=== PATIENT | female | born 1965 | race Caucasian/White ===

== ENCOUNTER 2016-11-28 16:19 | Inpatient (IN) | payer SELFPAY ==
[2016-11-28] MEDS ORDERED: Albuterol/Ipratropium 3.0-0.5 MG/3 ML Neb Soln NEB ONE (18:01)
--- NOTE | 2016-11-28 18:15 | EDM.PDOC ---
ED HPI GENERAL MEDICAL PROBLEM - General Chief Complaint: Respiratory Problem Stated Complaint: SOB Time Seen by Provider: 11/28/16 17:45 Source of Information: Reports: Patient History Limitations: Reports: No Limitations - History of Present Illness INITIAL COMMENTS - FREE TEXT/NARRATIVE: Patient presents today with complaints of worsening cough, yellow mucus production and SOB. Ramona states she has had a worsening cough for about 7 days. She now has pain when she coughs to her ribs, yellow mucus production and increase SOB. She denies fever, chill, nausea, vomiting or headaches. 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 ) - Related Data Allergies Allergy/AdvReac Type Severity Reaction Status Date / Time No Known Allergies Allergy Verified 02/19/13 20:28 Home Meds: Home Meds Albuterol [Ventolin HFA] 1 puff .XX 11/28/16 [History] Past Medical History Respiratory History: Reports: Asthma IMMIGRATION COORDINATOR History: Reports: Immunologic History: Reports: Other (See Below) (Splenectomy) - Past Surgical History HEENT Surgical History: Reports: Tonsillectomy GI Surgical History: Reports: Other (See Below) Other GI Surgeries/Procedures: spleen removed Social & Family History - Tobacco Use Smoking Status *Q: Current Some Day Smoker (Patient reports when she is feeling well she uses 2 to 2.5 ppd cigarettes.) Years of Tobacco use: 30 Packs/Tins Daily: 1 Used Tobacco, but Quit: No Second Hand Smoke Exposure: Yes - Caffeine Use Caffeine Use: Reports: Coffee - Alcohol Use Days Per Week of Alcohol Use: 2 Number of Drinks Per Day: 2 Total Drinks Per Week: 4 - Recreational Drug Use Recreational Drug Use: No ED ROS GENERAL - Review of Systems Review Of Systems: See Below Constitutional: Reports: Malaise, Weakness, Fatigue. Denies: Fever, Chills, Night Sweats, Diaphoresis, Weight Loss HEENT: Denies: Ear Pain, Sinus Problem, Throat Pain, Throat Swelling, Vision Change Cardiovascular: Reports: Dyspnea on Exertion, Other (She complains of pain to ribs and upper back with cough. ). Denies: Palpitations, PND, Syncope Endocrine: Reports: Fatigue GI/Abdominal: Denies: Abdominal Pain, Constipation, Diarrhea, Nausea, Vomiting : Denies: Dysuria, Frequency, Pain, Urgency Musculoskeletal: Reports: Other (Rib and upper back pain with cough. ) Skin: Denies: Cyanosis, Mottled, Pallor, Diaphoresis, Dryness, Bruising, Erythema Neurological: Denies: Confusion, Dizziness, Headache, Numbness, Tingling, Change in Speech, Gait Disturbance Psychiatric: Reports: No Symptoms Hematologic/Lymphatic: Reports: No Symptoms Immunologic: Reports: No Symptoms Free Text/Narrative/Comment: Ramona does not have an established provider, states she has not for several years. She does state that she has a nebulizer, albuterol nebs and albuterol inhaler at home. She also states she has not been up to date on her most recent immunizations ( spleenectomy). ED EXAM, GENERAL - Physical Exam Exam: See Below Exam Limited By: No Limitations General Appearance: Alert, WD/WN, No Apparent Distress Eye Exam: Bilateral Eye: Normal Inspection, PERRL Ears: Normal External Exam, Normal Canal, Normal TMs Ear Exam: Bilateral Ear: Auricle Normal, Canal Normal, TM normal Nose: Normal Inspection, Normal Mucosa, No Blood Throat/Mouth: Normal Inspection, Normal Lips, Normal Teeth, Normal Gums, Normal Voice, No Airway Compromise, Other (No pursed lip breathing, tri-podding. Mucus membranes dry. ) Head: Atraumatic, Normocephalic Neck: Normal Inspection, Supple, Non-Tender, Full Range of Motion. No: Lymphadenopathy (R), Lymphadenopathy (L) Respiratory/Chest: No Respiratory Distress, Chest Non-Tender, Decreased Breath Sounds, Rales, Rhonchi, Wheezing, Accessory Muscle Use, Prolonged Expiration. No: Stridor, Pleural Rub, Splinting Cardiovascular: Normal Peripheral Pulses, Regular Rate, Rhythm, No Edema, No Gallop, No Murmur, No Rub, Other (Distant heart sounds) Peripheral Pulses: 2+: Radial (L), Radial (R), Dorsalis Pedis (L), Dorsalis Pedis (R) GI/Abdominal: Normal Bowel Sounds, Soft, Non-Tender, No Distention, No Mass Back Exam: Normal Inspection, Full Range of Motion. No: CVA Tenderness (R), CVA Tenderness (L) Extremities: Normal Inspection, Normal Range of Motion, Non-Tender, No Pedal Edema, Normal Capillary Refill. No: Pedal Edema, Slow Capillary Refill, Mottled , Pallor Neurological: Alert, Oriented, CN II-XII Intact, Normal Cognition, Normal Gait, No Motor/Sensory Deficits Psychiatric: Normal Affect, Normal Mood Skin Exam: Warm, Dry, Intact, Normal Color, No Rash Lymphatic: No Adenopathy Course - Vital Signs Last Recorded V/S: Last Vital Signs Temp 36.9 C 11/28/16 19:05 Pulse 104 H 11/28/16 19:05 Resp 18 11/28/16 19:05 BP 122/79 11/28/16 19:05 Pulse Ox 89 L 11/28/16 19:05 - Orders/Labs/Meds Orders: Active Orders 24 hr Category Date Time Status RT Aerosol Therapy [RC] ASDIRECTED Care 11/28/16 18:01 Active Chest 2V [CR] Stat Exams 11/28/16 18:01 Taken ABG [BLOOD GAS ARTERIAL] [BG] Stat Lab 11/28/16 19:07 Ordered Sodium Chloride 0.9% [Saline Flush] Med 11/28/16 19:08 Ordered 10 ml FLUSH ASDIRECTED PRN Saline Lock Insert [OM.PC] Routine Oth 11/28/16 19:08 Ordered Medication Orders Sodium Chloride (Saline Flush) 10 ml FLUSH ASDIRECTED PRN PRN Reason: Keep Vein Open Labs: Laboratory Tests 11/28/16 11/28/16 11/28/16 Range/Units 18:17 18:17 18:17 WBC 9.5 (4.5-11.0) K/uL RBC 4.72 (3.30-5.50) M/uL Hgb 15.8 H D (12.0-15.0) g/dL Hct 45.2 (36.0-48.0) % MCV 96 (80-98) fL MCH 34 H (27-31) pg MCHC 35 (32-36) % Plt Count 310 (150-400) K/uL Neut % (Auto) 39 (36-66) % Lymph % (Auto) 35 (24-44) % Starr % (Auto) 10 H (2-6) % Eos % (Auto) 14 H (2-4) % Baso % (Auto) 2 H (0-1) % Sodium 138 L (140-148) mmol/L Potassium 4.5 (3.6-5.2) mmol/L Chloride 101 (100-108) mmol/L Carbon Dioxide 31 (21-32) mmol/L Anion Gap 10.5 (5.0-14.0) mmol/L BUN 9 (7-18) mg/dL Creatinine 0.7 (0.6-1.0) mg/dL Est Cr Clr Drug Dosing 71.21 mL/min Estimated GFR (MDRD) > 60 (>60) Glucose 96 (74-106) mg/dL Calcium 9.3 (8.5-10.1) mg/dL Total Bilirubin 0.5 D (0.2-1.0) mg/dL AST 22 (15-37) U/L ALT 23 (12-78) U/L Alkaline Phosphatase 51 (46-116) U/L C-Reactive Protein 0.02 (0.0-0.3) mg/dL Total Protein 7.4 (6.4-8.2) g/dL Albumin 4.3 (3.4-5.0) g/dL Globulin 3.1 (2.3-3.5) g/dL Albumin/Globulin Ratio 1.4 (1.2-2.2) Meds: Medications Generic Name Dose Route Start Last Admin Trade Name Freq PRN Reason Stop Dose Admin Sodium Chloride 10 ml 11/28/16 19:08 Saline Flush FLUSH ASDIRECTED PRN Keep Vein Open Discontinued Medications Generic Name Dose Route Start Last Admin Trade Name Freq PRN Reason Stop Dose Admin Albuterol/Ipratropium 3 ml 11/28/16 18:01 11/28/16 18:14 Duoneb 3.0-0.5 Mg/3 Ml NEB 11/28/16 18:02 3 ml ONETIME ONE Administration Methylprednisolone Sodium Succinate 125 mg 11/28/16 19:08 Solu-Medrol IVPUSH 11/28/16 19:09 ONETIME ONE - Radiology Interpretation Free Text/Narrative:: Chest x-ray reviewed with Dr. Mccarthy, possible consolidation left lower lobe. - Re-Assessments/Exams Free Text/Narrative Re-Assessment/Exam: 11/28/16 18:51 Patient reports her breathing has improved after use of nebulizer. Patient lab work and x-ray findings reviewed with her and her , all questions answered. 11/28/16 19:12 PatientO2 Saturation drops to 81-82 % on room air with talking. O2 saturation increases to 88% with deep breathing on room air. Patient agrees to be admitted for acute COPD exacerbation. Myrna Orellana AIRPLANE CAPTAIN to ER to admit patient. Departure - Departure Time of Disposition: 19:20 Disposition: [facility] Condition: Poor Clinical Impression: COPD exacerbation, Tobacco dependence, Hypoxia - Discharge Information Referrals: PCP,None [Primary Care Provider] - Forms: ED Department Discharge - My Orders Last 24 Hours: My Active Orders 11/28/16 18:01 RT Aerosol Therapy [RC] ASDIRECTED Chest 2V [CR] Stat 11/28/16 19:07 ABG [BLOOD GAS ARTERIAL] [BG] Stat 11/28/16 19:08 Sodium Chloride 0.9% [Saline Flush] 10 ml FLUSH ASDIRECTED PRN Saline Lock Insert [OM.PC] Routine - Assessment/Plan Last 24 Hours: My Active Orders 11/28/16 18:01 RT Aerosol Therapy [RC] ASDIRECTED Chest 2V [CR] Stat 11/28/16 19:07 ABG [BLOOD GAS ARTERIAL] [BG] Stat 11/28/16 19:08 Sodium Chloride 0.9% [Saline Flush] 10 ml FLUSH ASDIRECTED PRN Saline Lock Insert [OM.PC] Routine Assessment:: COPD exacerbation Hypoxia Tobacco dependence continuous. Plan: Patient has agreed to be admitted for COPD exacerbation. She was provided education on importance of tobacco cessation, following up with a primary care provider for care, importance of immunizations as well as impact on her body due to history of splenectomy.
[2016-11-28] MEDS ORDERED: methylPREDNISolone Sodium Succinate 125 MG/2 ML SDV IVPUSH ONE (19:08)
[2016-11-28] MEDS: Sodium Chloride 0.9% 10 ML Syringe FLUSH PRN (19:28)
[2016-11-28] MEDS ORDERED: Acetaminophen 325 MG Tab PO PRN (20:38)
[2016-11-28] MEDS ORDERED: LORazepam 2 MG/ML MDV IV PRN (20:38)
[2016-11-28] MEDS ORDERED: Ondansetron 4 MG/2 ML SDV IV PRN (20:38)
[2016-11-28] MEDS ORDERED: Ondansetron 4 MG Tab.DIS PO PRN (20:38)
[2016-11-28] MEDS ORDERED: Albuterol 0.083% 2.5 MG/3 ML Neb Soln NEB PRN (20:38)
[2016-11-28] MEDS ORDERED: Docusate Sodium 100 MG Cap PO PRN (20:38)
[2016-11-28] MEDS ORDERED: oxyCODONE 5 MG Tab PO PRN (20:38)
[2016-11-28] MEDS ORDERED: Ibuprofen 600 MG Tab PO PRN (20:38)
[2016-11-28] MEDS ORDERED: Morphine 2 MG/ML Syringe IVPUSH PRN (20:38)
[2016-11-28] MEDS ORDERED: Azithromycin 500 MG in Sodium Chloride 0.9% 250 ML IV SCH (21:00)
[2016-11-28] MEDS: Sodium Chloride 0.9% 1,000 ML IV SCH (22:08)
[2016-11-28] MEDS: cefTRIAXone 1 GM in Sodium Chloride 0.9% 50 ML IV SCH (22:12)
[2016-11-28] MEDS: Zolpidem 5 MG Tab PO SCH (22:16)
[2016-11-28] MEDS: Nicotine 21 MG/24 Hr Patch TRDERM SCH (22:17)
[2016-11-28] MEDS: Albuterol/Ipratropium 3.0-0.5 MG/3 ML Neb Soln NEB SCH (22:34)
[2016-11-28] MEDS: Enoxaparin 40 MG/0.4 ML Syringe SUBCUT SCH (22:41)
[2016-11-29] MEDS: methylPREDNISolone Sodium Succinate 125 MG/2 ML SDV IV SCH ×2 (01:21→06:55)
--- NOTE | 2016-11-29 02:30 | PCM.HP ---
H&P History of Present Illness - General Date of Service: 11/28/16 Admit Problem/Dx: Admission Diagnosis/Problem Admission Diagnosis/Problem COPD, Moderate chronic obstructive pulmonary disease Source of Information: Patient, Family () History Limitations: Reports: Respiratory Distress - History of Present Illness Initial Comments - Free Text/Narative: respiratory illness for 7 days. Onset of Symptoms: Reports: Gradual Duration of Symptoms: Reports: Day(s): (seven), Getting Worse Location: Reports: Chest Quality: Reports: Other (painful cough) Severity: Severe Improves with: Reports: None Worsens with: Reports: Breathing, Movement Context: Reports: Other (respiratory illness for the past 7 days. heavy smoker 2.5 packs per day for years. 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: Other OB/BYN History: x 3 Hematologic History: Reports: None, Anesthesia Reaction, Anemia, Anticoagulation Therapy, Autoimmune Thrombocytopenic Purpura, B12 Deficiency, Bleeding Disorder, Blood Transfusion(s), Folic Acid, Hemochromatosis, Heparin Induced Thrombocytopenia, Idiopathic Thrombocytopenia, Iron Deficiency, Polycythemia, Sickle Cell Anemia, Transfusion Reaction, Other (See Below) Other Hematologic History: hx of spleenectomy Immunologic History: Reports: Other (See Below) Other Immunologic History: hx of spleenectomy Oncologic (Cancer) History: Reports: Cervix - Infectious Disease History Infectious Disease History: Reports: Chicken Pox - Past Surgical History HEENT Surgical History: Reports: Tonsillectomy GI Surgical History: Reports: Other (See Below) Other GI Surgeries/Procedures: spleen removed Social & Family History - Tobacco Use Smoking Status *Q: Current Every Day Smoker Tobacco Use Within Last Twelve Months: Cigarettes (smoking 2 and half packs for years. 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 has 7 children, 1 as due to liver defect) H&P Review of Systems - Review of Systems: Review Of Systems: See Below General: Reports: Fever, Chills, Malaise, Weakness, Decreased Appetite HEENT: Reports: Sore Throat (from cough) Pulmonary: Reports: Shortness of Breath, Wheezing, Pleuritic Chest Pain, Cough, Sputum Cardiovascular: Reports: Dyspnea on Exertion, Orthopnea Gastrointestinal: Reports: No Symptoms Genitourinary: Reports: No Symptoms Musculoskeletal: Reports: No Symptoms Skin: Reports: No Symptoms Psychiatric: Reports: No Symptoms Neurological: Reports: No Symptoms Hematologic/Lymphatic: Reports: No Symptoms Immunologic: Reports: No Symptoms Exam - Exam Exam: See Below - Vital Signs Vital Signs: Last Vital Signs Temp 36.4 C 11/28/16 21:12 Pulse 78 11/28/16 21:12 Resp 18 11/28/16 21:12 BP 127/78 11/28/16 21:12 Pulse Ox 92 L 11/28/16 23:42 Weight: 46 kg - Exam Quality Assessment: Supplemental Oxygen General: Alert, Oriented, Cooperative, Mild Distress HEENT: PERRLA, Hearing Intact, Mucosa Moist & [employer], Nares Patent, Normal Nasal Septum, Posterior Pharynx Clear, Conjunctiva Clear, EOMI, EACs Clear, TMs Clear Neck: Supple, Trachea Midline, 2 Lungs: Decreased Breath Sounds Cardiovascular: Regular Rate, Regular Rhythm Abdomen: Normal Bowel Sounds, Soft Back Exam: Normal Inspection, Full Range of Motion Extremities: Normal Inspection Skin: Warm, Dry, Intact Neurological: Cranial Nerves Intact, Reflexes Equal Bilateral Neuro Extensive - Mental Status: Alert, Oriented x3, Normal Mood/Affect, Normal Cognition Neuro Extensive - Motor, Sensory, Reflexes: CN II-XII Intact, Normal Gait, Normal Reflexes Psychiatric: Alert, Normal Affect, Normal Mood - Patient Data Lab Results Last 24 hrs: Laboratory Results - last 24 hr 11/29/16 Range/Units 01:37 Urine Color Yellow Urine Appearance Clear Urine pH 5.0 (4.5-8.0) Ur Specific Wiggins 1.015 (1.008-1.030) Urine Protein Negative (NEGATIVE) mg/dL Urine Glucose (UA) Normal (NEGATIVE) mg/dL Urine Ketones Negative (NEGATIVE) mg/dL Urine Occult Blood Negative (NEGATIVE) Urine Nitrite Negative (NEGATIVE) Urine Bilirubin Negative (NEGATIVE) Urine Urobilinogen Normal (NORMAL) mg/dL Ur Leukocyte Esterase Negative (NEGATIVE) Urine RBC 0-5 (0-5) Urine WBC 0-5 (0-5) Ur Epithelial Cells Rare Amorphous Sediment Not seen Urine Bacteria Few Urine Mucus Not seen Result Diagrams: 11/28/16 18:17 11/28/16 18:17 Robbie Results Last 24 hrs: Microbiology 11/29/16 00:05 Gram Stain - Final Sputum - Expectorated *Q Meaningful Use (ADM) - VTE *Q VTE Criteria *Q: - Stroke *Q Stroke Criteria *Q: - AMI *Q AMI Criteria *Q: - Problem List (1) COPD exacerbation SNOMED Code(s): 416967622, 674423678 ICD Code: J44.1 - CHRONIC OBSTRUCTIVE PULMONARY DISEASE W (ACUTE) EXACERBATION Status: Acute Priority: High Current Visit: Yes (2) Hypoxia SNOMED Code(s): 098535668, 630678437 ICD Code: R09.02 - HYPOXEMIA Status: Acute Priority: High Current Visit : Yes (3) Tobacco dependence SNOMED Code(s): 63263733 ICD Code: F17.200 - NICOTINE DEPENDENCE, UNSPECIFIED, UNCOMPLICATED Status : Acute Priority: High Current Visit: Yes Problem List Initiated/Reviewed/Updated: Yes Orders Last 24hrs: Active Orders 24 hr Category Date Time Status Patient Status [ADT] Routine ADT 11/28/16 20:38 Active Communication Order [RC] ASDIRECTED Care 11/28/16 20:38 Active Intake and Output [RC] QSHIFT Care 11/28/16 20:38 Active May Shower [RC] ASDIRECTED Care 11/28/16 20:38 Active Notify Provider [RC] PRN Care 11/28/16 20:38 Active Oxygen Therapy [RC] ASDIRECTED Care 11/28/16 20:38 Active Pulse Oximetry [RC] CONTINUOUS Care 11/28/16 20:38 Active Up ad Liset [RC] ASDIRECTED Care 11/28/16 20:38 Active VTE/DVT Education [RC] Per Unit Routine Care 11/28/16 20:38 Active Vital Signs [RC] Q4H Care 11/28/16 20:38 Active Consult to Pulmonary Rehabilitation [CONS] Routine Cons 11/28/16 20:38 Active OT Evaluation and Treatment [CONS] Routine Cons 11/28/16 20:38 Active Respiratory Care Assess and Treatment [CONS] Routine Cons 11/28/16 20:38 Active Regular Diet [DIET] Diet 11/28/16 Dinner Active Chest 2V [CR] AM Exams 11/29/16 05:11 Ordered BASIC METABOLIC PANEL,BMP [CHEM] AM Lab 11/29/16 05:11 Ordered CBC WITH AUTO DIFF [HEME] AM Lab 11/29/16 05:11 Ordered CULTURE RESPIRATORY + SMEAR [RM] Stat Lab 11/29/16 00:05 Results Acetaminophen [Tylenol] Med 11/28/16 20:38 Active 650 mg PO Q4H PRN Albuterol [Proventil Neb Soln] Med 11/28/16 20:38 Active 2.5 mg NEB Q4H PRN Albuterol/Ipratropium [DuoNeb 3.0-0.5 MG/3 ML] Med 11/28/16 21:00 Active 3 ml NEB QIDRT Azithromycin [Zithromax] 500 mg Med 11/28/16 21:00 Active Sodium Chloride 0.9% [Normal Saline] 250 ml IV Q24H Codeine/guaiFENesin [Robitussin AC] Med 11/28/16 20:38 Active 10 ml PO Q4H PRN Docusate Sodium [Colace] Med 11/28/16 20:38 Active 100 mg PO BID PRN Enoxaparin [Lovenox] Med 11/28/16 20:38 Active 40 mg SUBCUT DAILY Ibuprofen [Motrin] Med 11/28/16 20:38 Active 600 mg PO Q6H PRN LORazepam [Ativan] Med 11/28/16 20:38 Active 1 mg IV Q6H PRN Morphine Med 11/28/16 20:38 Active 2 mg IVPUSH Q2H PRN Nicotine [Habitrol] Med 11/28/16 20:38 Active 21 mg TRDERM DAILY Ondansetron [Zofran ODT] Med 11/28/16 20:38 Active 4 mg PO Q6H PRN Ondansetron [Zofran] Med 11/28/16 20:38 Active 4 mg IV Q4H PRN Sodium Chloride 0.9% [Normal Saline] 1,000 ml Med 11/28/16 20:38 Active IV ASDIRECTED Zolpidem [Ambien] Med 11/28/16 21:00 Active 5 mg PO BEDTIME cefTRIAXone [Rocephin] 1 gm Med 11/28/16 20:30 Active Sodium Chloride 0.9% [Normal Saline] 50 ml IV Q24H methylPREDNISolone Sod Succ [Solu-MEDROL] Med 11/29/16 01:00 Active 62.5 mg IV Q6H oxyCODONE Med 11/28/16 20:38 Active 5 mg PO Q4H PRN Resuscitation Status Routine Resus Stat 11/28/16 19:44 Ordered Medication Orders Acetaminophen (Tylenol) 650 mg PO Q4H PRN PRN Reason: Pain (Mild 1-3)/fever Albuterol (Proventil Neb Soln) 2.5 mg NEB Q4H PRN PRN Reason: Shortness Of Breath/wheezing Albuterol/Ipratropium (Duoneb 3.0-0.5 Mg/3 Ml) 3 ml NEB QIDRT [facility] Last Admin: 11/28/16 22:34 Dose: 3 ml Docusate Sodium (Colace) 100 mg PO BID PRN PRN Reason: Constipation Enoxaparin Sodium (Lovenox) 40 mg SUBCUT DAILY [facility] Last Admin: 11/28/16 22:41 Dose: 40 mg Guaifenesin/Codeine Phosphate (Robitussin Ac) 10 ml PO Q4H PRN PRN Reason: Cough Azithromycin 500 mg/ Sodium (Chloride) 250 mls @ 250 mls/hr IV Q24H [facility] Stop: 12/01/16 21:01 Last Admin: 11/28/16 22:45 Dose: 250 mls/hr Sodium Chloride (Normal Saline) 1,000 mls @ 125 mls/hr IV ASDIRECTED [facility] Last Admin: 11/28/16 22:08 Dose: 125 mls/hr Ceftriaxone Sodium 1 gm/ (Sodium Chloride) 50 mls @ 200 mls/hr IV Q24H [facility] Stop: 12/05/16 20:31 Last Admin: 11/28/16 22:12 Dose: 200 mls/hr Ibuprofen (Motrin) 600 mg PO Q6H PRN PRN Reason: Pain/Fever Lorazepam (Ativan) 1 mg IV Q6H PRN PRN Reason: Nausea/Vomiting Methylprednisolone Sodium Succinate (Solu-Medrol) 62.5 mg IV Q6H [facility] Last Admin: 11/29/16 01:21 Dose: 62.5 mg Morphine Sulfate (Morphine) 2 mg IVPUSH Q2H PRN PRN Reason: Pain (severe 7-10) Nicotine (Habitrol) 21 mg TRDERM DAILY [facility] Last Admin: 11/28/16 22:17 Dose: 21 mg Ondansetron HCl (Zofran Odt) 4 mg PO Q6H PRN PRN Reason: Nausea able to take PO Ondansetron HCl (Zofran) 4 mg IV Q4H PRN PRN Reason: Nausea/Vomiting Oxycodone HCl (Oxycodone) 5 mg PO Q4H PRN PRN Reason: Pain (moderate 4-6) Sodium Chloride (Saline Flush) 10 ml FLUSH ASDIRECTED PRN PRN Reason: Keep Vein Open Last Admin: 11/28/16 19:28 Dose: 10 ml Zolpidem Tartrate (Ambien) 5 mg PO BEDTIME [facility] Last Admin: 11/28/16 22:16 Dose: Not Given Assessment/Plan Comment:: Assessment/Plan Comment:: ASSESSMENT AND PLAN -This is a 51 year old female presented to ER with , concerns of respiratory illness for the past 7 days. report shortness of breath, having to sleep upright, any time lays flat or down, has increased shortness of breath and coughing. In noted to be hypoxia with oxygen sats low 80's. labs, blood cultures pending, chest xray. will admit to hospital due to hypoxia. COPD-excerbation -duoneb and albuterol nebs as scheduled -IV solumedrol 62.5 mg every 6 hours -IV rocephin 1 gram every 24 hours -IV zithromax 500mg every 24 hours -robitussin AC 10ml every 4 hours prn cough -Continue outpatient medical regimen Tobacco dependence -Nicotine patch daily MAINTENANCE ISSUES -DVT prophylaxis; Lovenox 30 mg subcutaneous daily -GI prophylaxis; PPI therapy -Morley catheter; not indicated -Nutrition; regular diet -Nicotine dependence; patch order -consult OT discharge plannig CODE STATUS-FULL CODE ADMISSION patient will be admitted to inpatient status, expect at least a 2 night hospital stay for evaluation and management of problems as outlined above. At the time of this admission I do not reasonably expected evaluation and management of this problem will require more than a 96 hour hospital stay. DISPOSITION-anticipate discharge to home after the hospital stay. PRIMARY CARE PROVIDER- none listed
[2016-11-29] MEDS: Sodium Chloride 0.9% 1,000 ML IV SCH (06:55)
[2016-11-29] MEDS: Albuterol/Ipratropium 3.0-0.5 MG/3 ML Neb Soln NEB SCH ×4 (07:23→21:35)
[2016-11-29] MEDS ORDERED: Pantoprazole 40 MG Vial IVPUSH SCH (09:00)
[2016-11-29] MEDS: Enoxaparin 40 MG/0.4 ML Syringe SUBCUT SCH (09:59)
[2016-11-29] MEDS: Nicotine 21 MG/24 Hr Patch TRDERM SCH (09:59)
[2016-11-29] MEDS ORDERED: LORazepam 2 MG/ML MDV IV PRN (10:29)
[2016-11-29] MEDS: Codeine/guaiFENesin 100mg-10 MG/5 ML Syrup 10 ML Cup PO PRN (10:35)
--- NOTE | 2016-11-29 10:36 | PCM.PN ---
- General Info Date of Service: 11/29/16 Functional Status: Reports: tolerating diet, urinating - Review of Systems General: Denies: Fever, Weakness, Chills Pulmonary: Reports: shortness of breath, cough, sputum, wheezing. Denies: pleuritic chest pain, hemoptysis Cardiovascular: Reports: Dyspnea on Exertion. Denies: Chest Pain, Palpitations , Orthopnea, PND, Edema, Lightheadedness Gastrointestinal: Reports: No symptoms Systems Review Comment:: This patient is a 51-year-old woman who was admitted during the night with hypoxia, shortness of breath, and cough. She has a diagnosis of asthma, chest x- ray shows evidence of obvious COPD with significant hyperinflation. She does have a long-standing smoking history. Since admission she has been treated with antibiotics as well as IV Solu-Medrol and nebulizer therapy and does feel at least modestly improved. Vital signs have been stable and she has remained afebrile. - Patient Data Vitals - most recent: Last Vital Signs Temp 95.5 F 11/29/16 07:11 Pulse 82 11/29/16 07:24 Resp 16 11/29/16 07:11 BP 110/77 11/29/16 07:11 Pulse Ox 94 L 11/29/16 07:24 Weight - most recent: 101 lb 6.602 oz I&O - last 24 hours: Intake & Output 11/28/16 11/29/16 11/29/16 22:59 06:59 14:59 Intake Total 200 1745 Output Total 550 825 Balance -350 920 Lab Results last 24 hrs: Laboratory Results - last 24 hr 11/29/16 11/29/16 11/29/16 Range/Units 01:37 05:30 05:30 WBC 8.8 (4.5-11.0) K/uL RBC 4.63 (3.30-5.50) M/uL Hgb 15.3 H (12.0-15.0) g/dL Hct 44.7 (36.0-48.0) % MCV 97 (80-98) fL MCH 33 H (27-31) pg MCHC 34 (32-36) % Plt Count 285 (150-400) K/uL Neut % (Auto) 83 H (36-66) % Lymph % (Auto) 16 L (24-44) % [place] % (Auto) 1 L (2-6) % Eos % (Auto) 0 L (2-4) % Baso % (Auto) 1 (0-1) % Sodium 139 L (140-148) mmol/L Potassium 4.5 (3.6-5.2) mmol/L Chloride 104 (100-108) mmol/L Carbon Dioxide 31 (21-32) mmol/L Anion Gap 8.5 (5.0-14.0) mmol/L BUN 9 (7-18) mg/dL Creatinine 0.7 (0.6-1.0) mg/dL Est Cr Clr Drug Dosing 70.60 mL/min Estimated GFR (MDRD) > 60 (>60) Glucose 147 H (74-106) mg/dL Calcium 8.8 (8.5-10.1) mg/dL Urine Color Yellow Urine Appearance Clear Urine pH 5.0 (4.5-8.0) Ur Specific [place] 1.015 (1.008-1.030) Urine Protein Negative (NEGATIVE) mg/dL Urine Glucose (UA) Normal (NEGATIVE) mg/dL Urine Ketones Negative (NEGATIVE) mg/dL Urine Occult Blood Negative (NEGATIVE) Urine Nitrite Negative (NEGATIVE) Urine Bilirubin Negative (NEGATIVE) Urine Urobilinogen Normal (NORMAL) mg/dL Ur Leukocyte Esterase Negative (NEGATIVE) Urine RBC 0-5 (0-5) Urine WBC 0-5 (0-5) Ur Epithelial Cells Rare Amorphous Sediment Not seen Urine Bacteria Few Urine Mucus Not seen Robbie Results last 24 hrs: Microbiology 11/29/16 00:05 Gram Stain - Final Sputum - Expectorated Med Orders - Current: Current Medications Acetaminophen (Tylenol) 650 mg PO Q4H PRN PRN Reason: Pain (Mild 1-3)/fever Albuterol (Proventil Neb Soln) 2.5 mg NEB Q4H PRN PRN Reason: Shortness Of Breath/wheezing Albuterol/Ipratropium (Duoneb 3.0-0.5 Mg/3 Ml) 3 ml NEB QIDRT [facility] Last Admin: 11/29/16 07:23 Dose: 3 ml Docusate Sodium (Colace) 100 mg PO BID PRN PRN Reason: Constipation Enoxaparin Sodium (Lovenox) 40 mg SUBCUT DAILY [facility] Last Admin: 11/29/16 09:59 Dose: 40 mg Guaifenesin/Codeine Phosphate (Robitussin Ac) 10 ml PO Q4H PRN PRN Reason: Cough Azithromycin 500 mg/ Sodium (Chloride) 250 mls @ 250 mls/hr IV Q24H [facility] Stop: 12/01/16 21:01 Last Admin: 11/28/16 22:45 Dose: 250 mls/hr Ceftriaxone Sodium 1 gm/ (Sodium Chloride) 50 mls @ 200 mls/hr IV Q24H [facility] Stop: 12/05/16 20:31 Last Admin: 11/28/16 22:12 Dose: 200 mls/hr Ibuprofen (Motrin) 600 mg PO Q6H PRN PRN Reason: Pain/Fever Lorazepam (Ativan) 0.5 mg IV Q2H PRN PRN Reason: Nausea/Vomiting Methylprednisolone Sodium Succinate (Solu-Medrol) 40 mg IV Q6H [facility] Morphine Sulfate (Morphine) 2 mg IVPUSH Q2H PRN PRN Reason: Pain (severe 7-10) Nicotine (Habitrol) 21 mg TRDERM DAILY [facility] Last Admin: 11/29/16 09:59 Dose: 21 mg Ondansetron HCl (Zofran Odt) 4 mg PO Q6H PRN PRN Reason: Nausea able to take PO Ondansetron HCl (Zofran) 4 mg IV Q4H PRN PRN Reason: Nausea/Vomiting Oxycodone HCl (Oxycodone) 5 mg PO Q4H PRN PRN Reason: Pain (moderate 4-6) Pantoprazole Sodium (Protonix) 40 mg PO ACBREAKFAST [facility] Sodium Chloride (Saline Flush) 10 ml FLUSH ASDIRECTED PRN PRN Reason: Keep Vein Open Last Admin: 11/28/16 19:28 Dose: 10 ml Zolpidem Tartrate (Ambien) 5 mg PO BEDTIME [facility] Last Admin: 11/28/16 22:16 Dose: Not Given Discontinued Medications Albuterol/Ipratropium (Duoneb 3.0-0.5 Mg/3 Ml) 3 ml NEB ONETIME ONE Stop: 11/28/16 18:02 Last Admin: 11/28/16 18:14 Dose: 3 ml Sodium Chloride (Normal Saline) 1,000 mls @ 125 mls/hr IV ASDIRECTED [facility] Last Admin: 11/29/16 06:55 Dose: 125 mls/hr Lorazepam (Ativan) 1 mg IV Q6H PRN PRN Reason: Nausea/Vomiting Methylprednisolone Sodium Succinate (Solu-Medrol) 125 mg IVPUSH ONETIME ONE Stop: 11/28/16 19:09 Last Admin: 11/28/16 19:29 Dose: 125 mg Methylprednisolone Sodium Succinate (Solu-Medrol) 62.5 mg IV Q6H [facility] Last Admin: 11/29/16 06:55 Dose: 62.5 mg Pantoprazole Sodium (Protonix Iv) 40 mg IVPUSH DAILY [facility] Last Admin: 11/29/16 09:59 Dose: 40 mg - Exam Quality Assessment: DVT prophylaxis General: alert, oriented, cooperative, mild distress Lungs: Decreased breath sounds, Wheezing. No: Crackles, Rales, Rhonchi, Rub Cardiovascular: Regular Rate, Regular Rhythm, No Murmurs Abdomen: bowel sounds present, soft, no tenderness, no distension Extremities: no edema Skin: warm, dry, intact - Problem List Review Problem List Initiated/Reviewed/Updated: Yes - My Orders Last 24 Hours: My Active Orders 11/29/16 10:29 LORazepam [Ativan] 0.5 mg IV Q2H PRN Convert IV to Saline Lock [OM.PC] Routine 11/29/16 10:30 methylPREDNISolone Sod Succ [Solu-MEDROL] 40 mg IV Q6H - Plan Plan:: ASSESSMENT AND PLAN COPD-excerbation -duoneb and albuterol nebs as scheduled -IV solumedrol 40 mg every 6 hours -IV rocephin 1 gram every 24 hours -IV zithromax 500mg every 24 hours -robitussin AC 10ml every 4 hours prn cough -Continue outpatient medical regimen -Saline lock IV -Supplemental oxygen as needed Tobacco dependence-I counseled her this morning concerning the importance of nicotene cessation -Nicotine patch daily MAINTENANCE ISSUES -DVT prophylaxis; Lovenox 30 mg subcutaneous daily -GI prophylaxis; PPI therapy -Morley catheter; not indicated -Nutrition; regular diet -Nicotine dependence; patch order -consult OT discharge plannig CODE STATUS-FULL CODE ADMISSION patient will be admitted to inpatient status, expect at least a 2 night hospital stay for evaluation and management of problems as outlined above. At the time of this admission I do not reasonably expected evaluation and management of this problem will require more than a 96 hour hospital stay. DISPOSITION-anticipate discharge to home after the hospital stay. PRIMARY CARE PROVIDER- none listed
[2016-11-29] MEDS: methylPREDNISolone Sodium Succinate 40 MG/1 ML SDV IVPUSH SCH ×2 (13:05→17:54)
[2016-11-29] MEDS: Zolpidem 5 MG Tab PO SCH (21:28)
[2016-11-29] MEDS: cefTRIAXone 1 GM in Sodium Chloride 0.9% 50 ML IV SCH (21:29)
[2016-11-29] MEDS: Azithromycin 500 MG in Sodium Chloride 0.9% 250 ML IV SCH (22:22)
[2016-11-30] MEDS: methylPREDNISolone Sodium Succinate 40 MG/1 ML SDV IVPUSH SCH ×3 (01:24→16:54)
[2016-11-30] MEDS: Codeine/guaiFENesin 100mg-10 MG/5 ML Syrup 10 ML Cup PO PRN ×2 (02:50→09:01)
[2016-11-30] MEDS: Pantoprazole 40 MG Tab.CR PO SCH (08:15)
[2016-11-30] MEDS: Albuterol/Ipratropium 3.0-0.5 MG/3 ML Neb Soln NEB SCH ×4 (08:34→21:16)
[2016-11-30] MEDS: Enoxaparin 40 MG/0.4 ML Syringe SUBCUT SCH (08:57)
[2016-11-30] MEDS: Nicotine 21 MG/24 Hr Patch TRDERM SCH (08:58)
--- NOTE | 2016-11-30 10:52 | PCM.PN ---
- General Info Date of Service: 11/30/16 Functional Status: Reports: tolerating diet, urinating - Review of Systems General: Reports: Weakness. Denies: Fever, Chills Pulmonary: Reports: shortness of breath, cough. Denies: sputum, hemoptysis, wheezing Cardiovascular: Reports: Dyspnea on Exertion. Denies: Chest Pain, Palpitations , Orthopnea, PND, Edema Gastrointestinal: Reports: No symptoms Systems Review Comment:: This patient has improved over the past 24 hours with less shortness of breath and cough. Remains hypoxic and continues to require supplemental oxygen. Vital signs have been stable and she has remained afebrile. - Patient Data Vitals - most recent: Last Vital Signs Temp 97.1 F 11/30/16 10:48 Pulse 101 H 11/30/16 10:48 Resp 18 11/30/16 10:48 BP 90/57 L 11/30/16 10:48 Pulse Ox 93 L 11/30/16 10:48 Weight - most recent: 101 lb 6.602 oz I&O - last 24 hours: Intake & Output 11/29/16 11/30/16 11/30/16 22:59 06:59 14:59 Intake Total 0289 113 6882 Output Total 1300 1000 1000 Balance 380 -520 540 Robbie Results last 24 hrs: Microbiology 11/29/16 00:05 Gram Stain - Final Sputum - Expectorated Respiratory Culture - Preliminary Med Orders - Current: Current Medications Acetaminophen (Tylenol) 650 mg PO Q4H PRN PRN Reason: Pain (Mild 1-3)/fever Albuterol (Proventil Neb Soln) 2.5 mg NEB Q4H PRN PRN Reason: Shortness Of Breath/wheezing Albuterol/Ipratropium (Duoneb 3.0-0.5 Mg/3 Ml) 3 ml NEB QIDRT [facility] Last Admin: 11/30/16 08:34 Dose: 3 ml Docusate Sodium (Colace) 100 mg PO BID PRN PRN Reason: Constipation Enoxaparin Sodium (Lovenox) 40 mg SUBCUT DAILY [facility] Last Admin: 11/30/16 08:57 Dose: 40 mg Guaifenesin/Codeine Phosphate (Robitussin Ac) 10 ml PO Q4H PRN PRN Reason: Cough Last Admin: 11/30/16 09:01 Dose: 10 ml Ceftriaxone Sodium 1 gm/ (Sodium Chloride) 50 mls @ 200 mls/hr IV Q24H [facility] Stop: 12/05/16 20:31 Last Admin: 11/29/16 21:29 Dose: 200 mls/hr Azithromycin 500 mg/ Sodium (Chloride) 250 mls @ 250 mls/hr IV Q24H [facility] Stop: 11/30/16 21:59 Last Admin: 11/29/16 22:22 Dose: 250 mls/hr Ibuprofen (Motrin) 600 mg PO Q6H PRN PRN Reason: Pain/Fever Lorazepam (Ativan) 0.5 mg IV Q2H PRN PRN Reason: Nausea/Vomiting Methylprednisolone Sodium Succinate (Solu-Medrol) 40 mg IVPUSH Q12H [facility] Morphine Sulfate (Morphine) 2 mg IVPUSH Q2H PRN PRN Reason: Pain (severe 7-10) Nicotine (Habitrol) 21 mg TRDERM DAILY [facility] Last Admin: 11/30/16 08:58 Dose: 21 mg Ondansetron HCl (Zofran Odt) 4 mg PO Q6H PRN PRN Reason: Nausea able to take PO Ondansetron HCl (Zofran) 4 mg IV Q4H PRN PRN Reason: Nausea/Vomiting Oxycodone HCl (Oxycodone) 5 mg PO Q4H PRN PRN Reason: Pain (moderate 4-6) Pantoprazole Sodium (Protonix) 40 mg PO ACBREAKFAST [facility] Last Admin: 11/30/16 08:15 Dose: 40 mg Sodium Chloride (Saline Flush) 10 ml FLUSH ASDIRECTED PRN PRN Reason: Keep Vein Open Last Admin: 11/28/16 19:28 Dose: 10 ml Zolpidem Tartrate (Ambien) 5 mg PO BEDTIME [facility] Last Admin: 11/29/16 21:28 Dose: Not Given Discontinued Medications Albuterol/Ipratropium (Duoneb 3.0-0.5 Mg/3 Ml) 3 ml NEB ONETIME ONE Stop: 11/28/16 18:02 Last Admin: 11/28/16 18:14 Dose: 3 ml Azithromycin 500 mg/ Sodium (Chloride) 250 mls @ 250 mls/hr IV Q24H [facility] Stop: 12/01/16 21:01 Last Admin: 11/28/16 22:45 Dose: 250 mls/hr Sodium Chloride (Normal Saline) 1,000 mls @ 125 mls/hr IV ASDIRECTED [facility] Last Admin: 11/29/16 06:55 Dose: 125 mls/hr Lorazepam (Ativan) 1 mg IV Q6H PRN PRN Reason: Nausea/Vomiting Methylprednisolone Sodium Succinate (Solu-Medrol) 125 mg IVPUSH ONETIME ONE Stop: 11/28/16 19:09 Last Admin: 11/28/16 19:29 Dose: 125 mg Methylprednisolone Sodium Succinate (Solu-Medrol) 62.5 mg IV Q6H [facility] Last Admin: 11/29/16 06:55 Dose: 62.5 mg Methylprednisolone Sodium Succinate (Solu-Medrol) 40 mg IVPUSH Q6H [facility] Last Admin: 11/30/16 05:35 Dose: 40 mg Pantoprazole Sodium (Protonix Iv) 40 mg IVPUSH DAILY [facility] Last Admin: 11/29/16 09:59 Dose: 40 mg - Exam General: alert, oriented, cooperative, mild distress Lungs: Decreased breath sounds, Wheezing. No: Crackles, Rales, Rhonchi, Rub, Stridor Cardiovascular: Regular Rate, Regular Rhythm, No Murmurs Abdomen: bowel sounds present, soft, no tenderness, no distension Extremities: no edema Skin: warm, dry, intact - Problem List Review Problem List Initiated/Reviewed/Updated: Yes - My Orders Last 24 Hours: My Active Orders 11/29/16 10:29 LORazepam [Ativan] 0.5 mg IV Q2H PRN Convert IV to Saline Lock [OM.PC] Routine 11/30/16 11:00 methylPREDNISolone Sod Succ [Solu-MEDROL] 40 mg IVPUSH Q12H - Plan Plan:: ASSESSMENT AND PLAN COPD-excerbation -duoneb and albuterol nebs as scheduled -IV solumedrol 40 mg every 12 hours -IV rocephin 1 gram every 24 hours -IV zithromax 500mg every 24 hours -robitussin AC 10ml every 4 hours prn cough -Continue outpatient medical regimen -Saline lock IV -Supplemental oxygen as needed Tobacco dependence-I counseled her this morning concerning the importance of nicotene cessation -Nicotine patch daily MAINTENANCE ISSUES -DVT prophylaxis; Lovenox 30 mg subcutaneous daily -GI prophylaxis; PPI therapy -Morley catheter; not indicated -Nutrition; regular diet -Nicotine dependence; patch order -consult OT discharge plannig CODE STATUS-FULL CODE ADMISSION patient will be admitted to inpatient status, expect at least a 2 night hospital stay for evaluation and management of problems as outlined above. At the time of this admission I do not reasonably expected evaluation and management of this problem will require more than a 96 hour hospital stay. DISPOSITION-anticipate discharge to home tomorrow PRIMARY CARE PROVIDER- none listed
[2016-11-30] MEDS: Sodium Chloride 0.9% 10 ML Syringe FLUSH PRN (16:54)
[2016-11-30] MEDS: cefTRIAXone 1 GM in Sodium Chloride 0.9% 50 ML IV SCH (20:45)
[2016-11-30] MEDS: Zolpidem 5 MG Tab PO SCH (21:16)
[2016-11-30] MEDS: Azithromycin 500 MG in Sodium Chloride 0.9% 250 ML IV SCH (21:17)
[2016-12-01] MEDS: Codeine/guaiFENesin 100mg-10 MG/5 ML Syrup 10 ML Cup PO PRN (02:04)
[2016-12-01] MEDS: methylPREDNISolone Sodium Succinate 40 MG/1 ML SDV IVPUSH SCH (05:02)
[2016-12-01] MEDS: Pantoprazole 40 MG Tab.CR PO SCH (07:11)
[2016-12-01] MEDS: Albuterol/Ipratropium 3.0-0.5 MG/3 ML Neb Soln NEB SCH ×2 (07:25→11:11)
[2016-12-01] MEDS: Enoxaparin 40 MG/0.4 ML Syringe SUBCUT SCH (08:10)
[2016-12-01] MEDS: Nicotine 21 MG/24 Hr Patch TRDERM SCH (08:10)
--- NOTE | 2016-12-01 09:08 | CR ---
Heart size within normal limits. Tiny pulmonary nodule in the right lower lobe. Emphysematous change . No focal consolidation.
--- NOTE | 2016-12-01 09:09 | CR ---
Heart size stable. Emphysematous change. There are 2 stable nodules within the right lower lobe. No focal consolidation.
[2016-12-01 11:29] VITALS: BP 111/64
--- NOTE | 2016-12-01 12:42 | PCM.DCSUM1 ---
Discharge Summary - Hospital Course Brief History: 51-year-old female with history of asthma and tobacco dependence who presented with cough and shortness of breath. She was admitted for management of bronchitis and presumed COPD exacerbation. - Discharge Data Discharge Date: 12/01/16 Discharge Disposition: Home, Self-Care 01 Condition: Good - Discharge Diagnosis/Problem(s) (1) Acute bronchitis SNOMED Code(s): 86847371 ICD Code: J20.9 - ACUTE BRONCHITIS, UNSPECIFIED Status: Acute Qualifiers: Bronchitis organism: unspecified organism Qualified Code(s): J20.9 - Acute bronchitis, unspecified (2) Acute exacerbation of chronic obstructive pulmonary disease (COPD) SNOMED Code(s): 632837562 ICD Code: J44.1 - CHRONIC OBSTRUCTIVE PULMONARY DISEASE W (ACUTE) EXACERBATION Status: Acute (3) Tobacco dependence syndrome SNOMED Code(s): 64698235 ICD Code: F17.200 - NICOTINE DEPENDENCE, UNSPECIFIED, UNCOMPLICATED Status : Chronic - Patient Summary/Data Consults: Consultations 11/28/16 20:38 Consult to Pulmonary Rehabilitation [CONS] Routine Comment: Physician Instructions: OT Evaluation and Treatment [CONS] Routine Please Evaluate and Treat. OT Reason for Consult: Discharge Planning This query below is only for informational purposes and is not editable. Respiratory Care Assess and Treatment [CONS] Routine Comment: Physician Instructions: Reason for Consult: COPD, Tobacco dependence; new diagnosis Hospital Course: Ramona presented to the emergency room with increasing cough and shortness of breath. Workup in the emergency room was suggestive of acute bronchitis with hypoxic respiratory failure. She was admitted to the hospital and started on IV antibiotics as well as IV steroids. The chest x-ray obtained during the emergency room visit showed significant hyperinflation consistent with emphysema. Over the next couple of days she improved with the previously mentioned treatments. She did require supplemental oxygen throughout the hospital stay and we were unable to wean her off at the time of hospital discharge. She has been afebrile and has shown slow but steady improvement in her respiratory status. Her wheezing has resolved. She has been able to ambulate safely and effectively in the halls. She feels comfortable going home at this time and I do believe she is safe for outpatient management. She will need additional antibiotic and steroid therapy after hospital discharge. These are outlined in her discharge medications. I did also complete paperwork for home oxygen which she will likely need for at least short-term use after hospital discharge. She will be discharged home at this time under the care of her . She would benefit from outpatient follow-up once she secures health insurance so she can have formal testing to see if she has COPD/emphysema. - Patient Instructions Diet: Regular Diet as Tolerated Activity: As Tolerated Driving: May Drive Today Showering/Bathing: May Shower Notify Provider of: Fever, Increased Pain, Nausea and/or Vomiting Other/Special Instructions: 1. You written the hospital for management of acute bronchitis with a suspected exacerbation of COPD. I am suspicious you have COPD with emphysema based on chest x-ray. I would recommend additional outpatient follow-up with pulmonary function testing once you have health insurance. To treat the bronchitis I recommend a azithromycin 500 mg at bedtime for 3 doses with your first dose due today. The second antibiotic will be cefdinir 300 mg and this will be taken twice daily for 9 doses with your first dose due tonight. You will also be on prednisone taken twice daily with the morning and evening meal for 5 doses with your first dose due this evening. I have also provided a prescription for albuterol nebulizer solution which can be used 4 times daily as needed for shortness of breath or wheezing. 2. I recommend that you use home oxygen at 2 L/m [id number] until your breathing improves. We have completed the paperwork for [facility] to provide this equipment for use. 3. Please seek medical attention if you develop fever greater than 101, develop worsening shortness of breath or sudden onset of chest pain. - Discharge Plan Prescriptions/Med Rec: Albuterol [Proventil Neb Soln] 2.5 mg INH QID PRN #120 neb PRN Reason: sob/wheezing Azithromycin 500 mg PO BEDTIME #3 tablet Cefdinir 300 mg PO BID #9 capsule predniSONE [Prednisone] 20 mg PO BIDAC #5 tablet Home Medications: Home Meds Albuterol [Ventolin HFA] 1 puff .XX 11/28/16 [History] Albuterol [Proventil Neb Soln] 2.5 mg INH QID PRN #120 neb 12/01/16 [Rx] Azithromycin 500 mg PO BEDTIME #3 tablet 12/01/16 [Rx] Cefdinir 300 mg PO BID #9 capsule 12/01/16 [Rx] predniSONE [Prednisone] 20 mg PO BIDAC #5 tablet 12/01/16 [Rx] Patient Handouts: Smoking Cessation, Tips for Success, [id number], Chronic Obstructive Pulmonary Disease, [id number], Prednisone tablets Referrals: PCP,None [Primary Care Provider] - - Discharge Summary/Plan Comment DC Time >30 min.: Yes (40 - setting up home oxygen) - Patient Data Vitals - Most Recent: Last Vital Signs Temp 35.8 C 12/01/16 11:28 Pulse 107 H 12/01/16 11:28 Resp 22 H 12/01/16 11:28 BP 111/64 12/01/16 11:28 Pulse Ox 93 L 12/01/16 11:28 Weight - Most Recent: 46 kg I&O - Last 24 hours: Intake & Output 11/30/16 12/01/16 12/01/16 22:59 06:59 14:59 Intake Total 1200 600 Output Total 300 1300 1700 Balance 900 -700 -1700 JULISSA Results - Last 24 hrs: Microbiology 11/29/16 00:05 Gram Stain - Final Sputum - Expectorated Respiratory Culture - Final NORMAL RESPIRATORY HIRA 2 DAYS Med Orders - Current: Current Medications Acetaminophen (Tylenol) 650 mg PO Q4H PRN PRN Reason: Pain (Mild 1-3)/fever Albuterol (Proventil Neb Soln) 2.5 mg NEB Q4H PRN PRN Reason: Shortness Of Breath/wheezing Albuterol/Ipratropium (Duoneb 3.0-0.5 Mg/3 Ml) 3 ml NEB QIDRT [facility] Last Admin: 12/01/16 11:11 Dose: 3 ml Docusate Sodium (Colace) 100 mg PO BID PRN PRN Reason: Constipation Enoxaparin Sodium (Lovenox) 40 mg SUBCUT DAILY [facility] Last Admin: 12/01/16 08:10 Dose: 40 mg Guaifenesin/Codeine Phosphate (Robitussin Ac) 10 ml PO Q4H PRN PRN Reason: Cough Last Admin: 12/01/16 02:04 Dose: 10 ml Ceftriaxone Sodium 1 gm/ (Sodium Chloride) 50 mls @ 200 mls/hr IV Q24H [facility] Stop: 12/05/16 20:31 Last Admin: 11/30/16 20:45 Dose: 200 mls/hr Ibuprofen (Motrin) 600 mg PO Q6H PRN PRN Reason: Pain/Fever Lorazepam (Ativan) 0.5 mg IV Q2H PRN PRN Reason: Nausea/Vomiting Methylprednisolone Sodium Succinate (Solu-Medrol) 40 mg IVPUSH Q12H [facility] Last Admin: 12/01/16 05:02 Dose: 40 mg Morphine Sulfate (Morphine) 2 mg IVPUSH Q2H PRN PRN Reason: Pain (severe 7-10) Nicotine (Habitrol) 21 mg TRDERM DAILY [facility] Last Admin: 12/01/16 08:10 Dose: 21 mg Ondansetron HCl (Zofran Odt) 4 mg PO Q6H PRN PRN Reason: Nausea able to take PO Ondansetron HCl (Zofran) 4 mg IV Q4H PRN PRN Reason: Nausea/Vomiting Oxycodone HCl (Oxycodone) 5 mg PO Q4H PRN PRN Reason: Pain (moderate 4-6) Pantoprazole Sodium (Protonix) 40 mg PO ACBREAKFAST [facility] Last Admin: 12/01/16 07:11 Dose: 40 mg Sodium Chloride (Saline Flush) 10 ml FLUSH ASDIRECTED PRN PRN Reason: Keep Vein Open Last Admin: 11/30/16 16:54 Dose: 10 ml Zolpidem Tartrate (Ambien) 5 mg PO BEDTIME [facility] Last Admin: 11/30/16 21:16 Dose: Not Given Discontinued Medications Albuterol/Ipratropium (Duoneb 3.0-0.5 Mg/3 Ml) 3 ml NEB ONETIME ONE Stop: 11/28/16 18:02 Last Admin: 11/28/16 18:14 Dose: 3 ml Azithromycin 500 mg/ Sodium (Chloride) 250 mls @ 250 mls/hr IV Q24H [facility] Stop: 12/01/16 21:01 Last Admin: 11/28/16 22:45 Dose: 250 mls/hr Sodium Chloride (Normal Saline) 1,000 mls @ 125 mls/hr IV ASDIRECTED [facility] Last Admin: 11/29/16 06:55 Dose: 125 mls/hr Azithromycin 500 mg/ Sodium (Chloride) 250 mls @ 250 mls/hr IV Q24H [facility] Stop: 11/30/16 21:59 Last Admin: 11/30/16 21:17 Dose: 250 mls/hr Lorazepam (Ativan) 1 mg IV Q6H PRN PRN Reason: Nausea/Vomiting Methylprednisolone Sodium Succinate (Solu-Medrol) 125 mg IVPUSH ONETIME ONE Stop: 11/28/16 19:09 Last Admin: 11/28/16 19:29 Dose: 125 mg Methylprednisolone Sodium Succinate (Solu-Medrol) 62.5 mg IV Q6H [facility] Last Admin: 11/29/16 06:55 Dose: 62.5 mg Methylprednisolone Sodium Succinate (Solu-Medrol) 40 mg IVPUSH Q6H [facility] Last Admin: 11/30/16 05:35 Dose: 40 mg Pantoprazole Sodium (Protonix Iv) 40 mg IVPUSH DAILY [facility] Last Admin: 11/29/16 09:59 Dose: 40 mg *Q Meaningful Use (DIS) - VTE *Q VTE Criteria *Q: - Stroke *Q Stroke Criteria *Q: - AMI *Q AMI Criteria *Q:
== END 2016-12-01 14:15 | disposition home or self-care (01) | DRG 190 ==
LOC: JP.ED 16:19 → JP.MS 19:42
PROVIDERS: ADMIT Hospitalist; ATTEND Internal Medicine
DX: J44.0 Chronic obstructive pulmonary disease with (acute) lower respiratory infection (principal); J96.01 Acute respiratory failure with hypoxia; J20.9 Acute bronchitis, unspecified; J44.1 Chronic obstructive pulmonary disease with (acute) exacerbation; F17.210 Nicotine dependence, cigarettes, uncomplicated; Z79.52 Long term (current) use of systemic steroids
CPT/HCPCS: 36415; 36600; 71020; 71020-26; 80048; 80053; 81001; 82803; 85025; 86140; 86618; 86666; 86666-59; 86753; 87040; 87070; 87205; 94640-76; 94762; 96374; 99222-AI; 99231; 99232; 99239; 99285; 99285-25; A9270-GY; C9113; J0456; J0696; J1650; J2920; J2930; J7030; J7040; J7050; J7620

== ENCOUNTER 2016-12-03 02:27 | Inpatient (IN) | payer SELFPAY ==
[2016-12-03] MEDS ORDERED: HYDROmorphone 0.5 MG/0.5 ML Syringe IVPUSH ONE ×3 (03:03→06:00)
--- NOTE | 2016-12-03 03:05 | EDM.PDOC ---
[id number] BODY PAIN Time Seen by Provider: 12/03/16 03:00 Source of Information: Reports: Patient, Family History Limitations: Reports: No Limitations - History of Present Illness INITIAL COMMENTS - FREE TEXT/NARRATIVE: 51-year-old female who just got discharged from the hospital 2 days ago for a COPD exacerbation presents with acute abdomen and chest discomfort that has been ongoing for most of the day. Her abdomen feels distended, painful, and it radiates up in the epigastric area. No nausea or vomiting. She is very dramatic and uncomfortable. Onset: Sudden (Symptoms started fairly suddenly about 5-6 hours ago after eating ) Improves with: Reports: None Associated Symptoms: Reports: Chest Pain, Loss of Appetite, Weakness. Denies: Fever/Chills, Nausea/Vomiting generalized Pain Score (Numeric/FACES): 10 - Related Data Allergies Allergy/AdvReac Type Severity Reaction Status Date / Time No Known Allergies Allergy Verified 12/03/16 02:48 Home Meds: Home Meds Albuterol [Ventolin HFA] 1 puff INH ASDIRECTED PRN 11/28/16 [History] Albuterol [Proventil Neb Soln] 2.5 mg INH QID PRN #120 neb 12/01/16 [Rx] Azithromycin 500 mg PO BEDTIME #3 tablet 12/01/16 [Rx] Cefdinir 300 mg PO BID #9 capsule 12/01/16 [Rx] predniSONE [Prednisone] 20 mg PO BIDAC #5 tablet 12/01/16 [Rx] Past Medical History HEENT History: Reports: Impaired Vision Respiratory History: Reports: Asthma Gastrointestinal History: Reports: Pancreatitis [employer] 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 OB/BYN History: x 3 Musculoskeletal History: Reports: Fracture Neurological History: Reports: None Endocrine/Metabolic History: Reports: None Hematologic History: Reports: None, Anesthesia Reaction, Anemia, Anticoagulation Therapy, Autoimmune Thrombocytopenic Purpura, B12 Deficiency, Bleeding Disorder, Blood Transfusion(s), Folic Acid, Hemochromatosis, Heparin Induced Thrombocytopenia, Idiopathic Thrombocytopenia, Iron Deficiency, Polycythemia, Sickle Cell Anemia, Transfusion Reaction, Other (See Below) Other Hematologic History: hx of spleenectomy Immunologic History: Reports: Other (See Below) Other Immunologic History: hx of spleenectomy Oncologic (Cancer) History: Reports: Cervix Dermatologic History: Reports: None - Infectious Disease History Infectious Disease History: Reports: Chicken Pox - Past Surgical History HEENT Surgical History: Reports: Tonsillectomy GI Surgical History: Reports: Other (See Below) Other GI Surgeries/Procedures: spleen removed Female Surgical History: Reports: Tubal Ligation Social & Family History - Tobacco Use Smoking Status *Q: Current Every Day Smoker Years of Tobacco use: 35 Packs/Tins Daily: 0.2 Used Tobacco, but Quit: No Second Hand Smoke Exposure: No - Caffeine Use Caffeine Use: Reports: Coffee - Alcohol Use Days Per Week of Alcohol Use: 2 Number of Drinks Per Day: 2 Total Drinks Per Week: 4 - Recreational Drug Use Recreational Drug Use: No - Living Situation & Occupation Living situation: Reports: , with Family 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 has 7 children, 1 as due to liver defect) ED ROS GENERAL - Review of Systems Review Of Systems: See Below Constitutional: Reports: Weakness. Denies: Fever, Chills HEENT: Reports: No Symptoms Respiratory: Denies: Shortness of Breath Cardiovascular: Reports: Chest Pain GI/Abdominal: Reports: Abdominal Pain. Denies: Diarrhea : Reports: No Symptoms Skin: Reports: No Symptoms Neurological: Denies: Headache ED EXAM, GENERAL - Physical Exam Exam: See Below Exam Limited By: No Limitations General Appearance: Alert, Anxious, Moderate Distress Eye Exam: Bilateral Eye: Normal Inspection (No jaundice) Respiratory/Chest: No Respiratory Distress, Lungs Clear Cardiovascular: Regular Rate, Rhythm GI/Abdominal: Tender (Intensely tender to even light palpation, mild distention and hypoactive bowel sounds) Neurological: Alert, Oriented Psychiatric: Anxious Skin Exam: Warm, Dry Course - Vital Signs Last Recorded V/S: Last Vital Signs Temp 99.5 F 12/05/16 07:00 Pulse 110 H 12/05/16 07:08 Resp 18 12/05/16 07:00 BP 140/93 H 12/05/16 07:00 Pulse Ox 98 12/05/16 07:00 - Orders/Labs/Meds Orders: Medication Orders Acetaminophen (Tylenol) 650 mg PO Q4H PRN PRN Reason: Pain (Mild 1-3)/fever Albuterol (Proventil Neb Soln) 2.5 mg INH QIDRT MILLER Last Admin: 12/05/16 07:07 Dose: 2.5 mg Admin: 12/04/16 20:27 Dose: 2.5 mg Admin: 12/04/16 14:39 Dose: 2.5 mg Admin: 12/04/16 10:54 Dose: 2.5 mg Admin: 12/04/16 07:39 Dose: 2.5 mg Admin: 12/03/16 20:44 Dose: 2.5 mg Admin: 12/03/16 14:53 Dose: 2.5 mg Admin: 12/03/16 11:00 Dose: 2.5 mg Admin: 12/03/16 07:52 Dose: 2.5 mg Albuterol (Proventil Neb Soln) 2.5 mg NEB Q4H PRN PRN Reason: Shortness Of Breath/wheezing Bisacodyl (Dulcolax) 5 mg PO DAILY PRN PRN Reason: Constipation Hydromorphone HCl (Dilaudid Recreation Teacher 15 Mg In Ns 30 Ml) 0 mg IV ASDIRECTED PRN; Protocol PRN Reason: Pain Last Admin: 12/03/16 07:47 Dose: 15 mg Sodium Chloride (Normal Saline) 1,000 mls @ 150 mls/hr IV ASDIRECTED MILLER Last Admin: 12/05/16 03:59 Dose: 150 mls/hr Infusion: 12/05/16 03:56 Dose: 150 mls/hr Admin: 12/04/16 21:15 Dose: 150 mls/hr Infusion: 12/04/16 21:14 Dose: 150 mls/hr Admin: 12/04/16 14:33 Dose: 150 mls/hr Infusion: 12/04/16 14:33 Dose: 150 mls/hr Admin: 12/04/16 08:20 Dose: 150 mls/hr Infusion: 12/04/16 08:15 Dose: 150 mls/hr Admin: 12/04/16 01:34 Dose: 150 mls/hr Infusion: 12/04/16 01:33 Dose: 150 mls/hr Admin: 12/03/16 18:52 Dose: 150 mls/hr Infusion: 12/03/16 18:52 Dose: 150 mls/hr Admin: 12/03/16 12:40 Dose: 150 mls/hr Infusion: 12/03/16 12:40 Dose: 150 mls/hr Admin: 12/03/16 06:01 Dose: 150 mls/hr Lorazepam (Ativan) 0.5 - 1 mg IVPUSH Q4H PRN PRN Reason: Nausea/Vomiting Naloxone HCl (Narcan) 0.1 mg IVPUSH Q2M PRN PRN Reason: Respiratory Distress Nicotine (Habitrol) 21 mg TRDERM DAILY [facility] Last Admin: 12/04/16 08:39 Dose: 21 mg Admin: 12/03/16 13:29 Dose: 21 mg Ondansetron HCl (Zofran Odt) 4 mg PO Q6H PRN PRN Reason: Nausea able to take PO Ondansetron HCl (Zofran) 4 mg IV Q6H PRN PRN Reason: Nausea/Vomiting Last Admin: 12/04/16 06:57 Dose: 4 mg Admin: 12/03/16 12:06 Dose: 4 mg Pantoprazole Sodium (Protonix Iv) 40 mg IV Q12H MILLER Last Admin: 12/04/16 20:27 Dose: 40 mg Admin: 12/04/16 08:39 Dose: 40 mg Admin: 12/03/16 20:44 Dose: 40 mg Admin: 12/03/16 08:34 Dose: 40 mg Polyethylene Glycol (Miralax) 17 gm PO DAILY PRN PRN Reason: Constipation Last Admin: 12/03/16 10:27 Dose: 17 gm Senna/Docusate Sodium (Senna Plus) 1 tab PO BID PRN PRN Reason: Constipation Last Admin: 12/03/16 10:27 Dose: 1 tab Labs: Laboratory Tests 12/03/16 12/03/16 12/03/16 Range/Units 03:02 03:14 03:14 WBC 17.0 H (4.5-11.0) K/uL RBC 4.83 (3.30-5.50) M/uL Hgb 16.0 H (12.0-15.0) g/dL Hct 45.5 (36.0-48.0) % MCV 94 (80-98) fL MCH 33 H (27-31) pg MCHC 35 (32-36) % Plt Count 267 (150-400) K/uL Neut % (Auto) 77 H (36-66) % Lymph % (Auto) 15 L (24-44) % [place] % (Auto) 7 H (2-6) % Eos % (Auto) 1 L (2-4) % Baso % (Auto) 0 (0-1) % Sodium 141 (140-148) mmol/L Potassium 3.8 (3.6-5.2) mmol/L Chloride 102 (100-108) mmol/L Carbon Dioxide 30 (21-32) mmol/L Anion Gap 9.3 (5.0-14.0) mmol/L BUN 23 H D (7-18) mg/dL Creatinine 0.7 (0.6-1.0) mg/dL Est Cr Clr Drug Dosing 70.31 mL/min Estimated GFR (MDRD) > 60 (>60) Glucose 126 H (74-106) mg/dL Lactic Acid (0.4-2.0) mmol/L Calcium 9.0 (8.5-10.1) mg/dL Total Bilirubin 0.5 (0.2-1.0) mg/dL AST 22 (15-37) U/L ALT 32 (12-78) U/L Alkaline Phosphatase 46 (46-116) U/L Total Protein 7.2 (6.4-8.2) g/dL Albumin 4.2 (3.4-5.0) g/dL Globulin 3.0 (2.3-3.5) g/dL Albumin/Globulin Ratio 1.4 (1.2-2.2) Amylase 4679 H (25-115) U/L Lipase 04776 H (73-393) U/L // Range/Units 03:14 WBC (4.5-11.0) K/uL RBC (3.30-5.50) M/uL Hgb (12.0-15.0) g/dL Hct (36.0-48.0) % MCV (80-98) fL MCH (27-31) pg MCHC (32-36) % Plt Count (150-400) K/uL Neut % (Auto) (36-66) % Lymph % (Auto) (24-44) % [place] % (Auto) (2-6) % Eos % (Auto) (2-4) % Baso % (Auto) (0-1) % Sodium (140-148) mmol/L Potassium (3.6-5.2) mmol/L Chloride (100-108) mmol/L Carbon Dioxide (21-32) mmol/L Anion Gap (5.0-14.0) mmol/L BUN (7-18) mg/dL Creatinine (0.6-1.0) mg/dL Est Cr Clr Drug Dosing mL/min Estimated GFR (MDRD) (>60) Glucose (74-106) mg/dL Lactic Acid 2.0 (0.4-2.0) mmol/L Calcium (8.5-10.1) mg/dL Total Bilirubin (0.2-1.0) mg/dL AST (15-37) U/L ALT (12-78) U/L Alkaline Phosphatase (46-116) U/L Total Protein (6.4-8.2) g/dL Albumin (3.4-5.0) g/dL Globulin (2.3-3.5) g/dL Albumin/Globulin Ratio (1.2-2.2) Amylase (25-115) U/L Lipase (73-393) U/L Meds: Medications Generic Name Dose Route Start Last Admin Trade Name Freq PRN Reason Stop Dose Admin Acetaminophen 650 mg 12/03/16 07:30 Tylenol PO Q4H PRN Pain (Mild 1-3)/fever Albuterol 2.5 mg 12/03/16 07:30 12/05/16 07:07 Proventil Neb Soln INH 2.5 mg QIDRT MILLER Administration Albuterol 2.5 mg 12/03/16 07:30 Proventil Neb Soln NEB Q4H PRN Shortness Of Breath/wheezing Bisacodyl 5 mg 12/03/16 07:30 Dulcolax PO DAILY PRN Constipation Hydromorphone HCl 0 mg 12/03/16 07:30 12/03/16 07:47 Dilaudid Recreation Teacher 15 Mg In Ns 30 Ml IV 15 mg ASDIRECTED PRN Administration Pain Protocol Sodium Chloride 1,000 mls @ 150 mls/hr 12/03/16 05:30 12/05/16 03:59 Normal Saline IV 150 mls/hr ASDIRECTED MILLER Administration Lorazepam 0.5 - 1 mg 12/03/16 07:30 Ativan IVPUSH Q4H PRN Nausea/Vomiting Naloxone HCl 0.1 mg 12/03/16 07:30 Narcan IVPUSH Q2M PRN Respiratory Distress Nicotine 21 mg 12/03/16 10:30 12/04/16 08:39 Habitrol TRDERM 21 mg DAILY MILLER Administration Ondansetron HCl 4 mg 12/03/16 07:30 Zofran Odt PO Q6H PRN Nausea able to take PO Ondansetron HCl 4 mg 12/03/16 07:30 12/04/16 06:57 Zofran IV 4 mg Q6H PRN Administration Nausea/Vomiting Pantoprazole Sodium 40 mg 12/03/16 08:00 12/04/16 20:27 Protonix Iv IV 40 mg Q12H MILLER Administration Polyethylene Glycol 17 gm 12/03/16 07:30 12/03/16 10:27 Miralax PO 17 gm DAILY PRN Administration Constipation Senna/Docusate Sodium 1 tab 12/03/16 07:30 12/03/16 10:27 Senna Plus PO 1 tab BID PRN Administration Constipation Discontinued Medications Generic Name Dose Route Start Last Admin Trade Name Freq PRN Reason Stop Dose Admin Hydromorphone HCl 0.5 mg 12/03/16 03:03 12/03/16 03:12 Dilaudid IVPUSH 12/03/16 03:04 0.5 mg ONETIME ONE Administration Hydromorphone HCl 0.5 mg 12/03/16 03:32 12/03/16 03:36 Dilaudid IVPUSH 12/03/16 03:33 0.5 mg ONETIME ONE Administration Hydromorphone HCl 0.5 mg 12/03/16 06:00 12/03/16 06:03 Dilaudid IVPUSH 12/03/16 06:01 0.5 mg ONETIME ONE Administration Hydromorphone HCl Confirm 12/03/16 05:57 12/03/16 06:03 Dilaudid Administered 12/03/16 05:58 Not Given Dose 0.5 mg .ROUTE .STK-MED ONE Sodium Chloride 1,000 mls @ 500 mls/hr 12/03/16 03:15 12/03/16 03:11 Normal Saline IV 500 mls/hr ASDIRECTED MILLER Administration Sodium Chloride 70 mls @ 3 mls/sec 12/03/16 03:47 12/03/16 04:00 Normal Saline IV 12/03/16 03:48 3 mls/sec ASDIRECTED STA Administration Iopamidol 68 ml 12/03/16 03:47 12/03/16 03:59 Isovue-300 (61%) IV 12/03/16 03:48 100 ml . DIRECTED STA Administration Ondansetron HCl 4 mg 12/03/16 05:51 12/03/16 05:59 Zofran IVPUSH 12/03/16 05:52 4 mg ONETIME ONE Administration Ondansetron HCl Confirm 12/03/16 05:57 12/03/16 06:03 Zofran Administered 12/03/16 05:58 Not Given Dose 4 mg .ROUTE .[facility] ONE - Re-Assessments/Exams Free Text/Narrative Re-Assessment/Exam: 12/03/16 03:35 An IV was started and hydration initiated. Patient was given 0.5 mg of Dilaudid IV, lactic acid, amylase, white count CBC and CMP were drawn. Lactic acid was normal but amylase and lipase were very elevated, CT scan was then obtained which showed severe pancreatitis. Dr. Stokes of the hospitalist service agreed to admit the patient. Departure - Departure Time of Disposition: 07:06 Disposition: Admitted As Inpatient 68 Condition: Fair Clinical Impression: Acute pancreatitis Qualifiers: Pancreatitis type: unspecified pancreatitis type Acute pancreatitis complication: no infection or necrosis Qualified Code(s): K85.90 - Acute pancreatitis without necrosis or infection, unspecified - Discharge Information
[2016-12-03] MEDS ORDERED: Sodium Chloride 0.9% 1,000 ML IV SCH (03:15)
[2016-12-03] MEDS ORDERED: Iopamidol 612 MG/ML 100 ML Bottle IV STA (03:47)
[2016-12-03] MEDS ORDERED: Ondansetron 4 MG/2 ML SDV IVPUSH ONE (05:51)
[2016-12-03] MEDS ORDERED: Ondansetron 4 MG/2 ML SDV ONE (05:57)
[2016-12-03] MEDS ORDERED: HYDROmorphone 0.5 MG/0.5 ML Syringe ONE (05:57)
[2016-12-03] MEDS: Sodium Chloride 0.9% 1,000 ML IV SCH ×3 (06:01→18:52)
--- NOTE | 2016-12-03 06:06 | PCM.HP ---
H&P History of Present Illness - General Date of Service: 12/03/16 Admit Problem/Dx: Admission Diagnosis/Problem Admission Diagnosis/Problem Acute pancreatitis Source of Information: Patient, Family, Provider - History of Present Illness Initial Comments - Free Text/Narative: Ramona presents to the emergency room this morning with severe epigastric abdominal pain. The pain is crampy but also sharp in nature. The pain starts in her epigastrium and radiates up into her chest as well as into her back. Pain started yesterday morning and progressed throughout the day. Trying to eat made the pain worse as did certain positions such as lying down. Sitting up seems to make the pain the least uncomfortable. She took 2 Aleve yesterday but that did not help her pain. She has been nauseated throughout the day and vomited 1 time here in the emergency room. No complaints of diarrhea, fevers or chills but she has felt warm on occasion in the past 24 hours. She has no appetite. No complaints of shortness of breath or cough at this time. She denies any alcohol consumption. She does admit to having a few cigarettes after hospital discharge a few days ago. Workup in the emergency room revealed evidence for acute pancreatitis with significantly elevated lipase level as well as CT scan showing significant retroperitoneal edema. She'll be admitted for management. generalized Pain Score (Numeric/FACES): 10 - Related Data Allergies/Adverse Reactions: Allergies Allergy/AdvReac Type Severity Reaction Status Date / Time No Known Allergies Allergy Verified 12/03/16 02:48 Home Medications: Home Meds Albuterol [Ventolin HFA] 1 puff .XX 11/28/16 [History] Albuterol [Proventil Neb Soln] 2.5 mg INH QID PRN #120 neb 12/01/16 [Rx] Azithromycin 500 mg PO BEDTIME #3 tablet 12/01/16 [Rx] Cefdinir 300 mg PO BID #9 capsule 12/01/16 [Rx] predniSONE [Prednisone] 20 mg PO BIDAC #5 tablet 12/01/16 [Rx] Past Medical History HEENT History: Reports: Impaired Vision Respiratory History: Reports: Asthma Gastrointestinal History: Reports: Pancreatitis [employer] 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 OB/BYN History: x 3 Musculoskeletal History: Reports: Fracture Neurological History: Reports: None Endocrine/Metabolic History: Reports: None Hematologic History: Reports: None, Anesthesia Reaction, Anemia, Anticoagulation Therapy, Autoimmune Thrombocytopenic Purpura, B12 Deficiency, Bleeding Disorder, Blood Transfusion(s), Folic Acid, Hemochromatosis, Heparin Induced Thrombocytopenia, Idiopathic Thrombocytopenia, Iron Deficiency, Polycythemia, Sickle Cell Anemia, Transfusion Reaction, Other (See Below) Other Hematologic History: hx of spleenectomy Immunologic History: Reports: Other (See Below) Other Immunologic History: hx of spleenectomy Oncologic (Cancer) History: Reports: Cervix Dermatologic History: Reports: None - Infectious Disease History Infectious Disease History: Reports: Chicken Pox - Past Surgical History HEENT Surgical History: Reports: Tonsillectomy GI Surgical History: Reports: Other (See Below) Other GI Surgeries/Procedures: spleen removed Female Surgical History: Reports: Tubal Ligation Social & Family History - Family History GI: Denies: Pancreatitis - Tobacco Use Smoking Status *Q: Current Every Day Smoker Years of Tobacco use: 35 Packs/Tins Daily: 0.2 Used Tobacco, but Quit: No Second Hand Smoke Exposure: No - Caffeine Use Caffeine Use: Reports: Coffee - Alcohol Use Days Per Week of Alcohol Use: 2 Number of Drinks Per Day: 2 Total Drinks Per Week: 4 - Recreational Drug Use Recreational Drug Use: No - Living Situation & Occupation Living situation: Reports: , with Family 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 Pertinent positives and negatives are noted in the history of present illness. All other systems were reviewed and were negative except as noted. Exam - Exam Exam: See Below - Vital Signs Vital Signs: Last Vital Signs Temp 35.7 C 12/03/16 02:50 Pulse 83 12/03/16 05:10 Resp 16 12/03/16 05:10 BP 117/79 12/03/16 05:10 Pulse Ox 94 L 12/03/16 05:10 Weight: 45.813 kg - Exam Quality Assessment: No: Supplemental Oxygen General: Alert, Oriented, Cooperative, Moderate Distress HEENT: Conjunctiva Clear. No: Mucosa Moist & [place] (dry), Scleral Icterus Neck: Supple, Trachea Midline. No: Lymphadenopathy, Thyromegaly Lungs: Clear to Auscultation, Normal Respiratory Effort Cardiovascular: Regular Rate, Regular Rhythm. No: Systolic Murmur Abdomen: Normal Bowel Sounds, Soft, Distention (Moderate), Guarding (Generalized ), Tenderness (Moderately severe tenderness with palpation) Back Exam: Normal Inspection, Full Range of Motion Extremities: Normal Inspection, Normal Pulses. No: Cyanosis, Edema Skin: Warm, Dry, Intact Neuro Extensive - Mental Status: Alert, Oriented x3, Nl Response to Commands Neuro Extensive - Motor, Sensory, Reflexes: CN II-XII Intact. No: Dysarthria, Abnormal Motor, Tremor Psychiatric: Alert, Normal Affect - Patient Data Lab Results Last 24 hrs: Laboratory Results - last 24 hr 12/03/16 12/03/16 12/03/16 Range/Units 03:02 03:14 03:14 WBC 17.0 H (4.5-11.0) K/uL RBC 4.83 (3.30-5.50) M/uL Hgb 16.0 H (12.0-15.0) g/dL Hct 45.5 (36.0-48.0) % MCV 94 (80-98) fL MCH 33 H (27-31) pg MCHC 35 (32-36) % Plt Count 267 (150-400) K/uL Neut % (Auto) 77 H (36-66) % Lymph % (Auto) 15 L (24-44) % [place] % (Auto) 7 H (2-6) % Eos % (Auto) 1 L (2-4) % Baso % (Auto) 0 (0-1) % Sodium 141 (140-148) mmol/L Potassium 3.8 (3.6-5.2) mmol/L Chloride 102 (100-108) mmol/L Carbon Dioxide 30 (21-32) mmol/L Anion Gap 9.3 (5.0-14.0) mmol/L BUN 23 H D (7-18) mg/dL Creatinine 0.7 (0.6-1.0) mg/dL Est Cr Clr Drug Dosing 70.31 mL/min Estimated GFR (MDRD) > 60 (>60) Glucose 126 H (74-106) mg/dL Lactic Acid (0.4-2.0) mmol/L Calcium 9.0 (8.5-10.1) mg/dL Total Bilirubin 0.5 (0.2-1.0) mg/dL AST 22 (15-37) U/L ALT 32 (12-78) U/L Alkaline Phosphatase 46 (46-116) U/L Total Protein 7.2 (6.4-8.2) g/dL Albumin 4.2 (3.4-5.0) g/dL Globulin 3.0 (2.3-3.5) g/dL Albumin/Globulin Ratio 1.4 (1.2-2.2) Amylase 4679 H (25-115) U/L Lipase 47230 H (73-393) U/L 12/03/16 Range/Units 03:14 WBC (4.5-11.0) K/uL RBC (3.30-5.50) M/uL Hgb (12.0-15.0) g/dL Hct (36.0-48.0) % MCV (80-98) fL MCH (27-31) pg MCHC (32-36) % Plt Count (150-400) K/uL Neut % (Auto) (36-66) % Lymph % (Auto) (24-44) % [place] % (Auto) (2-6) % Eos % (Auto) (2-4) % Baso % (Auto) (0-1) % Sodium (140-148) mmol/L Potassium (3.6-5.2) mmol/L Chloride (100-108) mmol/L Carbon Dioxide (21-32) mmol/L Anion Gap (5.0-14.0) mmol/L BUN (7-18) mg/dL Creatinine (0.6-1.0) mg/dL Est Cr Clr Drug Dosing mL/min Estimated GFR (MDRD) (>60) Glucose (74-106) mg/dL Lactic Acid 2.0 (0.4-2.0) mmol/L Calcium (8.5-10.1) mg/dL Total Bilirubin (0.2-1.0) mg/dL AST (15-37) U/L ALT (12-78) U/L Alkaline Phosphatase (46-116) U/L Total Protein (6.4-8.2) g/dL Albumin (3.4-5.0) g/dL Globulin (2.3-3.5) g/dL Albumin/Globulin Ratio (1.2-2.2) Amylase (25-115) U/L Lipase (73-393) U/L Result Diagrams: 12/03/16 03:02 12/03/16 03:14 Imaging Impressions Last 24 hrs: CT scan of the abdomen and pelvis -images were personally reviewed - there is evidence for fairly extensive retroperitoneal edema surrounding the pancreas which is concerning for acute pancreatitis. Gallbladder appears normal and I don 't see any stones or significant sludge. Moderate stool throughout the colon. No evidence for obstruction. *Q Meaningful Use (ADM) - VTE *Q VTE Criteria *Q: - VTE Risk Assess *Q Each Risk Factor Represents 1 Point: Age 41 - 59 years, Serious Lung Disease Including Pneumonia, Less than 1 Month, Abnormal Pulmonary Function (COPD) Total Score 1 Point Risk Factors: 3 Each Risk Factor Represents 2 Points: None Total Score 2 Point Risk Factors: 0 Each Risk Factor Represents 3 Points: None Total Score 3 Point Risk Factors: 0 Each Risk Factor Represents 5 Points: None Total Score 5 Point Risk Factors: 0 Venous Thromboembolism Risk Factor Score *Q: 3 - Stroke *Q Stroke Criteria *Q: - AMI *Q AMI Criteria *Q: - Problem List (1) Acute pancreatitis SNOMED Code(s): 763625451 ICD Code: K85.90 - ACUTE PANCREATITIS WITHOUT NECROSIS OR INFECTION, UNSP Status: Acute Current Visit: Yes Qualifiers: Pancreatitis type: unspecified pancreatitis type Acute pancreatitis complication: no infection or necrosis Qualified Code(s): K85.90 - Acute pancreatitis without necrosis or infection, unspecified (2) Tobacco dependence syndrome SNOMED Code(s): 07609462 ICD Code: F17.200 - NICOTINE DEPENDENCE, UNSPECIFIED, UNCOMPLICATED Status : Chronic Current Visit: No (3) Acute bronchitis SNOMED Code(s): 46945964 ICD Code: J20.9 - ACUTE BRONCHITIS, UNSPECIFIED Status: Acute Current Visit: No Qualifiers: Bronchitis organism: unspecified organism Qualified Code(s): J20.9 - Acute bronchitis, unspecified Problem List Initiated/Reviewed/Updated: Yes Orders Last 24hrs: Active Orders 24 hr Category Date Time Status Patient Status Manage Transfer [TRANSFER] Routine ADT 12/03/16 05:52 Ordered Abdomen Pelvis w Cont [CT] Stat Exams 12/03/16 03:36 Taken HYDROmorphone [Dilaudid] Med 12/03/16 06:00 Once 0.5 mg IVPUSH ONETIME ONE Sodium Chloride 0.9% [Normal Saline] 1,000 ml Med 12/03/16 03:15 Active IV ASDIRECTED Sodium Chloride 0.9% [Normal Saline] 1,000 ml Med 12/03/16 05:30 Active IV ASDIRECTED Resuscitation Status Routine Resus Stat 12/03/16 05:53 Ordered Medication Orders Sodium Chloride (Normal Saline) 1,000 mls @ 500 mls/hr IV ASDIRECTED [facility] Last Admin: 12/03/16 03:11 Dose: 500 mls/hr Sodium Chloride (Normal Saline) 1,000 mls @ 150 mls/hr IV ASDIRECTED MILLER Assessment/Plan Comment:: Assessment and plan - Acute pancreatitis - impressive retroperitoneal edema and significant elevation of lipase and white blood cell count. Most likely culprits include medications such as azithromycin, prednisone or Aleve and cigarette smoking is also a possibility. No alcohol use and no evidence for gallstones. -Pain control -Anti-nausea medications -IV fluids -Nothing by mouth status -Discontinue his azithromycin, prednisone and avoid NSAIDs -Repeat labs in the morning Recent acute bronchitis with COPD - no strong evidence for infection at this time and antibiotics will be completely discontinued. She has completed her prednisone burst. -Supplement oxygen as needed -Continue nebulizers -Closely monitor respiratory status Tobacco dependent - tobacco cessation information will be provided and nicotine supplementation will be provided as requested. Maintenance issues - - DVT prophylaxis - mechanical - GI prophylaxis - PPI - Nutrition - nothing by mouth - Morley catheter - not indicated CODE STATUS - full code Admission justification - This patient will be admitted for inpatient services and is medically appropriate meeting medical necessity for inpatient admission as outlined in my documentation. I reasonably expect the patient will require inpatient services that span a period time over 2 midnights. I reasonably expect this patient to be discharged or transferred within 96 hours [facility]. Disposition - anticipate discharge to home after the hospital stay Primary care physician - none Collins Stokes M.D.
[2016-12-03] MEDS ORDERED: Bisacodyl 5 MG Tab PO PRN (07:30)
[2016-12-03] MEDS ORDERED: Naloxone 0.4 MG/ML SDV IVPUSH PRN (07:30)
[2016-12-03] MEDS ORDERED: Albuterol 0.083% 2.5 MG/3 ML Neb Soln NEB PRN (07:30)
[2016-12-03] MEDS ORDERED: Ondansetron 4 MG Tab.DIS PO PRN (07:30)
[2016-12-03] MEDS ORDERED: LORazepam 2 MG/ML MDV IVPUSH PRN (07:30)
[2016-12-03] MEDS ORDERED: Polyethylene Glycol 3350 Powder 17 GM Packet PO PRN (07:30)
[2016-12-03] MEDS: HYDROmorphone/Normal Saline 15 MG/30 ML PCA IV PRN (07:47)
[2016-12-03] MEDS: Albuterol 0.083% 2.5 MG/3 ML Neb Soln INH SCH ×4 (07:52→20:44)
[2016-12-03] MEDS: Pantoprazole 40 MG Vial IV SCH ×2 (08:34→20:44)
[2016-12-03] MEDS: Ondansetron 4 MG/2 ML SDV IV PRN (12:06)
[2016-12-03] MEDS: Nicotine 21 MG/24 Hr Patch TRDERM SCH (13:29)
[2016-12-04] MEDS: Sodium Chloride 0.9% 1,000 ML IV SCH ×4 (01:34→21:15)
[2016-12-04] MEDS: Ondansetron 4 MG/2 ML SDV IV PRN (06:57)
[2016-12-04] MEDS: Albuterol 0.083% 2.5 MG/3 ML Neb Soln INH SCH ×4 (07:39→20:27)
[2016-12-04] MEDS: Nicotine 21 MG/24 Hr Patch TRDERM SCH (08:39)
[2016-12-04] MEDS: Pantoprazole 40 MG Vial IV SCH ×2 (08:39→20:27)
--- NOTE | 2016-12-04 14:25 | PCM.PN ---
- General Info Date of Service: 12/04/16 Functional Status: Reports: pain controlled, ambulating - Review of Systems General: Denies: Fever Pulmonary: Denies: shortness of breath Gastrointestinal: Reports: Abdominal pain, Nausea Systems Review Comment:: No acute events overnight. Pain has improved compared to yesterday and she has not had any more vomiting but does have some mild nausea. No complaints of shortness of breath. Appetite seems to be slowly improving. Lipase has improved significantly compared to yesterday but her white blood cell count has risen. Still feels bloated. - Patient Data Vitals - most recent: Last Vital Signs Temp 37.2 C 12/04/16 11:12 Pulse 100 12/04/16 11:12 Resp 16 12/04/16 11:12 BP 129/84 12/04/16 11:12 Pulse Ox 94 L 12/04/16 11:12 Weight - most recent: 50.349 kg I&O - last 24 hours: Intake & Output 12/03/16 12/04/16 12/04/16 22:59 06:59 14:59 Intake Total 1643 1567 Output Total 300 700 350 Balance 1343 867 -350 Lab Results last 24 hrs: Laboratory Results - last 24 hr 12/04/16 12/04/16 Range/Units 05:00 05:00 WBC 27.8 H (4.5-11.0) K/uL RBC 4.80 (3.30-5.50) M/uL Hgb 15.7 H (12.0-15.0) g/dL Hct 46.1 (36.0-48.0) % MCV 96 (80-98) fL MCH 33 H (27-31) pg MCHC 34 (32-36) % Plt Count 282 (150-400) K/uL Sodium 140 (140-148) mmol/L Potassium 4.1 (3.6-5.2) mmol/L Chloride 106 (100-108) mmol/L Carbon Dioxide 30 (21-32) mmol/L Anion Gap 3.6 L (5.0-14.0) mmol/L BUN 10 D (7-18) mg/dL Creatinine 0.6 (0.6-1.0) mg/dL Est Cr Clr Drug Dosing 75.73 mL/min Estimated GFR (MDRD) > 60 (>60) Glucose 94 (74-106) mg/dL Calcium 8.2 L (8.5-10.1) mg/dL Total Bilirubin 0.5 (0.2-1.0) mg/dL AST 16 (15-37) U/L ALT 21 (12-78) U/L Alkaline Phosphatase 39 L (46-116) U/L Total Protein 6.0 L (6.4-8.2) g/dL Albumin 3.1 L (3.4-5.0) g/dL Globulin 2.9 (2.3-3.5) g/dL Albumin/Globulin Ratio 1.1 L (1.2-2.2) Lipase 6274 H (73-393) U/L Med Orders - Current: Current Medications Acetaminophen (Tylenol) 650 mg PO Q4H PRN PRN Reason: Pain (Mild 1-3)/fever Albuterol (Proventil Neb Soln) 2.5 mg INH QIDRT [facility] Last Admin: 12/04/16 10:54 Dose: 2.5 mg Albuterol (Proventil Neb Soln) 2.5 mg NEB Q4H PRN PRN Reason: Shortness Of Breath/wheezing Bisacodyl (Dulcolax) 5 mg PO DAILY PRN PRN Reason: Constipation Hydromorphone HCl (Dilaudid Mixing Operator 15 Mg In Ns 30 Ml) 0 mg IV ASDIRECTED PRN; Protocol PRN Reason: Pain Last Admin: 12/03/16 07:47 Dose: 15 mg Sodium Chloride (Normal Saline) 1,000 mls @ 150 mls/hr IV ASDIRECTED [facility] Last Admin: 12/04/16 08:20 Dose: 150 mls/hr Lorazepam (Ativan) 0.5 - 1 mg IVPUSH Q4H PRN PRN Reason: Nausea/Vomiting Naloxone HCl (Narcan) 0.1 mg IVPUSH Q2M PRN PRN Reason: Respiratory Distress Nicotine (Habitrol) 21 mg TRDERM DAILY [facility] Last Admin: 12/04/16 08:39 Dose: 21 mg Ondansetron HCl (Zofran Odt) 4 mg PO Q6H PRN PRN Reason: Nausea able to take PO Ondansetron HCl (Zofran) 4 mg IV Q6H PRN PRN Reason: Nausea/Vomiting Last Admin: 12/04/16 06:57 Dose: 4 mg Pantoprazole Sodium (Protonix Iv) 40 mg IV Q12H [facility] Last Admin: 12/04/16 08:39 Dose: 40 mg Polyethylene Glycol (Miralax) 17 gm PO DAILY PRN PRN Reason: Constipation Last Admin: 12/03/16 10:27 Dose: 17 gm Senna/Docusate Sodium (Senna Plus) 1 tab PO BID PRN PRN Reason: Constipation Last Admin: 12/03/16 10:27 Dose: 1 tab Discontinued Medications Hydromorphone HCl (Dilaudid) 0.5 mg IVPUSH ONETIME ONE Stop: 12/03/16 03:04 Last Admin: 12/03/16 03:12 Dose: 0.5 mg Hydromorphone HCl (Dilaudid) 0.5 mg IVPUSH ONETIME ONE Stop: 12/03/16 03:33 Last Admin: 12/03/16 03:36 Dose: 0.5 mg Hydromorphone HCl (Dilaudid) 0.5 mg IVPUSH ONETIME ONE Stop: 12/03/16 06:01 Last Admin: 12/03/16 06:03 Dose: 0.5 mg Hydromorphone HCl (Dilaudid) Confirm Administered Dose 0.5 mg .ROUTE .STK-MED ONE Stop: 12/03/16 05:58 Last Admin: 12/03/16 06:03 Dose: Not Given Sodium Chloride (Normal Saline) 1,000 mls @ 500 mls/hr IV ASDIRECTED [facility] Last Admin: 12/03/16 03:11 Dose: 500 mls/hr Sodium Chloride (Normal Saline) 70 mls @ 3 mls/sec IV ASDIRECTED [facility] Stop: 12/03/16 03:48 Last Admin: 12/03/16 04:00 Dose: 3 mls/sec Iopamidol (Isovue-300 (61%)) 68 ml IV . DIRECTED [facility] Stop: 12/03/16 03:48 Last Admin: 12/03/16 03:59 Dose: 100 ml Ondansetron HCl (Zofran) 4 mg IVPUSH ONETIME ONE Stop: 12/03/16 05:52 Last Admin: 12/03/16 05:59 Dose: 4 mg Ondansetron HCl (Zofran) Confirm Administered Dose 4 mg .ROUTE .STK-MED ONE Stop: 12/03/16 05:58 Last Admin: 12/03/16 06:03 Dose: Not Given - Exam Quality Assessment: supplemental oxygen General: alert, oriented, cooperative, no acute distress Neck: supple Lungs: Clear to auscultation, Normal respiratory effort Cardiovascular: Regular Rate, Regular Rhythm Abdomen: soft, no distension, tenderness (epigastrium ) Extremities: no edema, no cyanosis Skin: warm, dry Psy/Mental Status: alert, normal affect - Problem List & Annotations (1) Acute pancreatitis SNOMED Code(s): 506467629 Code(s): K85.90 - ACUTE PANCREATITIS WITHOUT NECROSIS OR INFECTION, UNSP Status: Acute Current Visit: Yes Qualifiers: Pancreatitis type: unspecified pancreatitis type Acute pancreatitis complication: no infection or necrosis Qualified Code(s): K85.90 - Acute pancreatitis without necrosis or infection, unspecified (2) Tobacco dependence syndrome SNOMED Code(s): 81417454 Code(s): F17.200 - NICOTINE DEPENDENCE, UNSPECIFIED, UNCOMPLICATED Status: Chronic Current Visit: No (3) Acute bronchitis SNOMED Code(s): 85096425 Code(s): J20.9 - ACUTE BRONCHITIS, UNSPECIFIED Status: Acute Current Visit: No Qualifiers: Bronchitis organism: unspecified organism Qualified Code(s): J20.9 - Acute bronchitis, unspecified - Problem List Review Problem List Initiated/Reviewed/Updated: Yes - My Orders Last 24 Hours: My Active Orders 12/05/16 05:00 BASIC METABOLIC PANEL,BMP [CHEM] Timed CBC W/O DIFF,HEMOGRAM [HEME] Timed (1) LIPASE [CHEM] Timed - Plan Plan:: Assessment and plan - Acute pancreatitis - impressive retroperitoneal edema and significant elevation of lipase and white blood cell count. Clinically improved from admission with decreasing pain and lipase level but white blood cell count has risen. 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 She has completed her prednisone burst. -Supplement oxygen as needed -Continue nebulizers -Closely monitor respiratory status Tobacco dependent - tobacco cessation information will be provided and nicotine supplementation will be provided as requested. Maintenance issues - - DVT prophylaxis - mechanical - GI prophylaxis - PPI - Nutrition - nothing by mouth Disposition - anticipate discharge to home after the hospital stay Collins Stokes M.D.
[2016-12-05] MEDS: Sodium Chloride 0.9% 1,000 ML IV SCH ×3 (03:59→17:06)
[2016-12-05] MEDS: Albuterol 0.083% 2.5 MG/3 ML Neb Soln INH SCH ×4 (07:07→22:56)
[2016-12-05] MEDS: Pantoprazole 40 MG Vial IV SCH ×2 (07:40→19:55)
[2016-12-05] MEDS: Nicotine 21 MG/24 Hr Patch TRDERM SCH (09:00)
[2016-12-05] MEDS: Ondansetron 4 MG/2 ML SDV IV PRN (10:37)
[2016-12-05] MEDS ORDERED: Magnesium Hydroxide 400 MG/5 ML Susp 30 ML Cup PO ONE (12:51)
--- NOTE | 2016-12-05 12:53 | PCM.PN ---
- General Info Date of Service: 12/05/16 Functional Status: Reports: pain controlled, ambulating - Review of Systems General: Reports: Weakness Gastrointestinal: Reports: Abdominal pain, Nausea Systems Review Comment:: No acute events overnight. Abdominal pain has been slowly improving. She tolerated ice chips with no difficulty. She did have a low-grade temperature elevation but no fever. Still feels bloated and abdomen remains distended. She has not had a bowel movement yet. She does continue to require 2 L of supplemental oxygen. No cough or sputum production. Intermittent difficulties with nausea but this seems to be improving. - Patient Data Vitals - most recent: Last Vital Signs Temp 37.3 C 12/05/16 11:00 Pulse 108 H 12/05/16 11:00 Resp 18 12/05/16 11:00 BP 138/85 12/05/16 11:00 Pulse Ox 94 L 12/05/16 11:00 Weight - most recent: 50.349 kg I&O - last 24 hours: Intake & Output 12/04/16 12/05/16 12/05/16 22:59 06:59 14:59 Intake Total 1853 1821 20 Output Total 400 500 Balance 1453 1321 20 Lab Results last 24 hrs: Laboratory Results - last 24 hr 12/05/16 12/05/16 Range/Units 05:45 05:45 WBC 24.2 H (4.5-11.0) K/uL RBC 4.33 (3.30-5.50) M/uL Hgb 13.9 (12.0-15.0) g/dL Hct 41.4 (36.0-48.0) % MCV 96 (80-98) fL MCH 32 H (27-31) pg MCHC 34 (32-36) % Plt Count 240 (150-400) K/uL Sodium 137 L (140-148) mmol/L Potassium 3.9 (3.6-5.2) mmol/L Chloride 104 (100-108) mmol/L Carbon Dioxide 27 (21-32) mmol/L Anion Gap 9.9 (5.0-14.0) mmol/L BUN 10 (7-18) mg/dL Creatinine 0.5 L (0.6-1.0) mg/dL Est Cr Clr Drug Dosing 108.18 mL/min Estimated GFR (MDRD) > 60 (>60) Glucose 95 (74-106) mg/dL Calcium 8.4 L (8.5-10.1) mg/dL Lipase 1956 H (73-393) U/L Med Orders - Current: Current Medications Acetaminophen (Tylenol) 650 mg PO Q4H PRN PRN Reason: Pain (Mild 1-3)/fever Albuterol (Proventil Neb Soln) 2.5 mg INH QIDRT [facility] Last Admin: 12/05/16 10:59 Dose: 2.5 mg Albuterol (Proventil Neb Soln) 2.5 mg NEB Q4H PRN PRN Reason: Shortness Of Breath/wheezing Hydromorphone HCl (Dilaudid Arch Cushion Skiving Machine Operator 15 Mg In Ns 30 Ml) 0 mg IV ASDIRECTED PRN; Protocol PRN Reason: Pain Last Admin: 12/03/16 07:47 Dose: 15 mg Lorazepam (Ativan) 0.5 - 1 mg IVPUSH Q4H PRN PRN Reason: Nausea/Vomiting Naloxone HCl (Narcan) 0.1 mg IVPUSH Q2M PRN PRN Reason: Respiratory Distress Nicotine (Habitrol) 21 mg TRDERM DAILY [facility] Last Admin: 12/04/16 08:39 Dose: 21 mg Ondansetron HCl (Zofran Odt) 4 mg PO Q6H PRN PRN Reason: Nausea able to take PO Ondansetron HCl (Zofran) 4 mg IV Q6H PRN PRN Reason: Nausea/Vomiting Last Admin: 12/05/16 10:37 Dose: 4 mg Pantoprazole Sodium (Protonix Iv) 40 mg IV Q12H [facility] Last Admin: 12/05/16 07:40 Dose: 40 mg Polyethylene Glycol (Miralax) 17 gm PO DAILY PRN PRN Reason: Constipation Last Admin: 12/03/16 10:27 Dose: 17 gm Senna/Docusate Sodium (Senna Plus) 1 tab PO BID PRN PRN Reason: Constipation Last Admin: 12/03/16 10:27 Dose: 1 tab Discontinued Medications Bisacodyl (Dulcolax) 5 mg PO DAILY PRN PRN Reason: Constipation Last Admin: 12/05/16 07:40 Dose: 5 mg Hydromorphone HCl (Dilaudid) 0.5 mg IVPUSH ONETIME ONE Stop: 12/03/16 03:04 Last Admin: 12/03/16 03:12 Dose: 0.5 mg Hydromorphone HCl (Dilaudid) 0.5 mg IVPUSH ONETIME ONE Stop: 12/03/16 03:33 Last Admin: 12/03/16 03:36 Dose: 0.5 mg Hydromorphone HCl (Dilaudid) 0.5 mg IVPUSH ONETIME ONE Stop: 12/03/16 06:01 Last Admin: 12/03/16 06:03 Dose: 0.5 mg Hydromorphone HCl (Dilaudid) Confirm Administered Dose 0.5 mg .ROUTE .STK-MED ONE Stop: 12/03/16 05:58 Last Admin: 12/03/16 06:03 Dose: Not Given Sodium Chloride (Normal Saline) 1,000 mls @ 500 mls/hr IV ASDIRECTED [facility] Last Admin: 12/03/16 03:11 Dose: 500 mls/hr Sodium Chloride (Normal Saline) 70 mls @ 3 mls/sec IV ASDIRECTED [facility] Stop: 12/03/16 03:48 Last Admin: 12/03/16 04:00 Dose: 3 mls/sec Sodium Chloride (Normal Saline) 1,000 mls @ 150 mls/hr IV ASDIRECTED [facility] Last Admin: 12/05/16 10:49 Dose: 150 mls/hr Iopamidol (Isovue-300 (61%)) 68 ml IV . DIRECTED [facility] Stop: 12/03/16 03:48 Last Admin: 12/03/16 03:59 Dose: 100 ml Ondansetron HCl (Zofran) 4 mg IVPUSH ONETIME ONE Stop: 12/03/16 05:52 Last Admin: 12/03/16 05:59 Dose: 4 mg Ondansetron HCl (Zofran) Confirm Administered Dose 4 mg .ROUTE .STK-MED ONE Stop: 12/03/16 05:58 Last Admin: 12/03/16 06:03 Dose: Not Given - Exam Quality Assessment: supplemental oxygen General: alert, oriented, cooperative, no acute distress Neck: supple Lungs: Clear to auscultation, Normal respiratory effort Cardiovascular: Regular Rhythm, Tachycardia Abdomen: soft, no distension, tenderness Extremities: no edema, no cyanosis Skin: warm, dry Psy/Mental Status: alert, normal affect - Problem List & Annotations (1) Acute pancreatitis SNOMED Code(s): 930074911 Code(s): K85.90 - ACUTE PANCREATITIS WITHOUT NECROSIS OR INFECTION, UNSP Status: Acute Current Visit: Yes Qualifiers: Pancreatitis type: unspecified pancreatitis type Acute pancreatitis complication: no infection or necrosis Qualified Code(s): K85.90 - Acute pancreatitis without necrosis or infection, unspecified (2) Tobacco dependence syndrome SNOMED Code(s): 02943730 Code(s): F17.200 - NICOTINE DEPENDENCE, UNSPECIFIED, UNCOMPLICATED Status: Chronic Current Visit: No (3) Acute bronchitis SNOMED Code(s): 20370281 Code(s): J20.9 - ACUTE BRONCHITIS, UNSPECIFIED Status: Acute Current Visit: No Qualifiers: Bronchitis organism: unspecified organism Qualified Code(s): J20.9 - Acute bronchitis, unspecified - Problem List Review Problem List Initiated/Reviewed/Updated: Yes - My Orders Last 24 Hours: My Active Orders 12/05/16 12:50 Sodium Chloride 0.9% [Normal Saline] 1,000 ml IV ASDIRECTED 12/05/16 12:51 Magnesium Hydroxide [Milk of Magnesia] 30 ml PO ONETIME ONE 12/05/16 13:00 Bisacodyl [Dulcolax] 10 mg PO DAILY PRN 12/06/16 05:00 BASIC METABOLIC PANEL,BMP [CHEM] Timed CBC W/O DIFF,HEMOGRAM [HEME] Timed (1) LIPASE [CHEM] Timed - Plan Plan:: Assessment and plan - Acute pancreatitis - impressive retroperitoneal edema and significant elevation of lipase and white blood cell count. Pain is improving slowly and white count is trending down as is the lipase level. Still significant bloating. Tolerating ice chips so far. Vitals are stable other than mild tachycardia. 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 She has completed her prednisone burst. -Supplement oxygen as needed -Continue nebulizers -Closely monitor respiratory status Tobacco dependent - tobacco cessation information will be provided and nicotine supplementation will be provided as requested. Maintenance issues - - DVT prophylaxis - mechanical - GI prophylaxis - PPI - Nutrition - nothing by mouth Disposition - anticipate discharge to home after the hospital stay Collins Stokes M.D.
[2016-12-05] MEDS ORDERED: Bisacodyl 5 MG Tab PO PRN (13:00)
[2016-12-06] MEDS: Sodium Chloride 0.9% 1,000 ML IV SCH (05:45)
[2016-12-06] MEDS: Albuterol 0.083% 2.5 MG/3 ML Neb Soln INH SCH ×4 (07:23→20:07)
[2016-12-06] MEDS: Pantoprazole 40 MG Vial IV SCH ×2 (07:52→20:07)
[2016-12-06] MEDS: Nicotine 21 MG/24 Hr Patch TRDERM SCH (08:55)
[2016-12-06] MEDS: Potassium Chloride 20 MEQ, Lidocaine 1% 2 ML in Sodium Chloride 0.9% 100 ML IV SCH ×2 (11:02→13:19)
[2016-12-06] MEDS: D5 1/2 NS w/ 20 mEq/L KCl 1,000 ML IV SCH (12:24)
[2016-12-06] MEDS ORDERED: Magnesium Citrate Solution 296 ML Bottle PO ONE (12:49)
--- NOTE | 2016-12-06 12:51 | PCM.PN ---
- General Info Date of Service: 12/06/16 Functional Status: Reports: pain controlled, ambulating - Review of Systems General: Reports: Weakness Pulmonary: Reports: shortness of breath Gastrointestinal: Reports: Abdominal pain, [place] Systems Review Comment:: no acute events overnight. Still no bowel movement despite aggressive bowel stimulation. Mild shortness of breath. She feels weak and fatigued when she is up and moving around. Heart rate increases greater than 100 with any activity. White blood cell count and lipase are trending down. Abdominal pain seems to be decreasing but distention is stable or even slightly increased. Low-grade temperature elevations. - Patient Data Vitals - most recent: Last Vital Signs Temp 36.6 C 12/06/16 11:00 Pulse 105 H 12/06/16 11:00 Resp 18 12/06/16 11:00 BP 136/75 12/06/16 11:00 Pulse Ox 92 L 12/06/16 11:00 Weight - most recent: 50.349 kg I&O - last 24 hours: Intake & Output 12/05/16 12/06/16 12/06/16 22:59 06:59 14:59 Intake Total 1776 806 647 Output Total 700 900 750 Balance 1076 -94 -103 Lab Results last 24 hrs: Laboratory Results - last 24 hr 12/06/16 12/06/16 Range/Units 05:09 05:09 WBC 18.9 H (4.5-11.0) K/uL RBC 4.11 (3.30-5.50) M/uL Hgb 13.3 (12.0-15.0) g/dL Hct 39.3 (36.0-48.0) % MCV 96 (80-98) fL MCH 32 H (27-31) pg MCHC 34 (32-36) % Plt Count 230 (150-400) K/uL Sodium 136 L (140-148) mmol/L Potassium 3.5 L (3.6-5.2) mmol/L Chloride 101 (100-108) mmol/L Carbon Dioxide 27 (21-32) mmol/L Anion Gap 11.5 (5.0-14.0) mmol/L BUN 9 (7-18) mg/dL Creatinine 0.5 L (0.6-1.0) mg/dL Est Cr Clr Drug Dosing 108.18 mL/min Estimated GFR (MDRD) > 60 (>60) Glucose 78 (74-106) mg/dL Calcium 8.1 L (8.5-10.1) mg/dL Lipase 1253 H (73-393) U/L Med Orders - Current: Current Medications Acetaminophen (Tylenol) 650 mg PO Q4H PRN PRN Reason: Pain (Mild 1-3)/fever Albuterol (Proventil Neb Soln) 2.5 mg INH QIDRT [facility] Last Admin: 12/06/16 11:16 Dose: 2.5 mg Albuterol (Proventil Neb Soln) 2.5 mg NEB Q4H PRN PRN Reason: Shortness Of Breath/wheezing Bisacodyl (Dulcolax) 10 mg PO DAILY PRN PRN Reason: Constipation Hydromorphone HCl (Dilaudid Associate Creative Director 15 Mg In Ns 30 Ml) 0 mg IV ASDIRECTED PRN; Protocol PRN Reason: Pain Last Admin: 12/03/16 07:47 Dose: 15 mg Potassium Chloride 20 meq/Lidocaine HCl 2 ml/ Sodium Chloride 112 mls @ 50 mls/ hr IV Q2H [facility] Stop: 12/06/16 14:59 Last Admin: 12/06/16 11:02 Dose: 50 mls/hr Potassium Chloride/Dextrose/Sod Cl (D5 1/2 Ns W/ 20 Meq/L Kcl) 1,000 mls @ 75 mls/hr IV ASDIRECTED [facility] Last Admin: 12/06/16 12:24 Dose: 75 mls/hr Lorazepam (Ativan) 0.5 - 1 mg IVPUSH Q4H PRN PRN Reason: Nausea/Vomiting Naloxone HCl (Narcan) 0.1 mg IVPUSH Q2M PRN PRN Reason: Respiratory Distress Nicotine (Habitrol) 21 mg TRDERM DAILY [facility] Last Admin: 12/06/16 08:55 Dose: 21 mg Ondansetron HCl (Zofran Odt) 4 mg PO Q6H PRN PRN Reason: Nausea able to take PO Ondansetron HCl (Zofran) 4 mg IV Q6H PRN PRN Reason: Nausea/Vomiting Last Admin: 12/05/16 10:37 Dose: 4 mg Pantoprazole Sodium (Protonix Iv) 40 mg IV Q12H [facility] Last Admin: 12/06/16 07:52 Dose: 40 mg Polyethylene Glycol (Miralax) 17 gm PO DAILY PRN PRN Reason: Constipation Last Admin: 12/03/16 10:27 Dose: 17 gm Senna/Docusate Sodium (Senna Plus) 1 tab PO BID PRN PRN Reason: Constipation Last Admin: 12/03/16 10:27 Dose: 1 tab Discontinued Medications Bisacodyl (Dulcolax) 5 mg PO DAILY PRN PRN Reason: Constipation Last Admin: 12/05/16 07:40 Dose: 5 mg Hydromorphone HCl (Dilaudid) 0.5 mg IVPUSH ONETIME ONE Stop: 12/03/16 03:04 Last Admin: 12/03/16 03:12 Dose: 0.5 mg Hydromorphone HCl (Dilaudid) 0.5 mg IVPUSH ONETIME ONE Stop: 12/03/16 03:33 Last Admin: 12/03/16 03:36 Dose: 0.5 mg Hydromorphone HCl (Dilaudid) 0.5 mg IVPUSH ONETIME ONE Stop: 12/03/16 06:01 Last Admin: 12/03/16 06:03 Dose: 0.5 mg Hydromorphone HCl (Dilaudid) Confirm Administered Dose 0.5 mg .ROUTE .STK-MED ONE Stop: 12/03/16 05:58 Last Admin: 12/03/16 06:03 Dose: Not Given Sodium Chloride (Normal Saline) 1,000 mls @ 500 mls/hr IV ASDIRECTED [facility] Last Admin: 12/03/16 03:11 Dose: 500 mls/hr Sodium Chloride (Normal Saline) 70 mls @ 3 mls/sec IV ASDIRECTED [facility] Stop: 12/03/16 03:48 Last Admin: 12/03/16 04:00 Dose: 3 mls/sec Sodium Chloride (Normal Saline) 1,000 mls @ 150 mls/hr IV ASDIRECTED [facility] Last Admin: 12/05/16 10:49 Dose: 150 mls/hr Sodium Chloride (Normal Saline) 1,000 mls @ 75 mls/hr IV ASDIRECTED [facility] Last Admin: 12/06/16 05:45 Dose: 75 mls/hr Iopamidol (Isovue-300 (61%)) 68 ml IV . DIRECTED [facility] Stop: 12/03/16 03:48 Last Admin: 12/03/16 03:59 Dose: 100 ml Magnesium Hydroxide (Milk Of Magnesia) 30 ml PO ONETIME ONE Stop: 12/05/16 12:52 Last Admin: 12/05/16 14:14 Dose: 30 ml Ondansetron HCl (Zofran) 4 mg IVPUSH ONETIME ONE Stop: 12/03/16 05:52 Last Admin: 12/03/16 05:59 Dose: 4 mg Ondansetron HCl (Zofran) Confirm Administered Dose 4 mg .ROUTE .STK-MED ONE Stop: 12/03/16 05:58 Last Admin: 12/03/16 06:03 Dose: Not Given - Exam Quality Assessment: No: supplemental oxygen General: alert, oriented, cooperative, no acute distress Neck: supple Lungs: Clear to auscultation, Normal respiratory effort, Decreased breath sounds (both bases) Cardiovascular: Regular Rhythm, Tachycardia Abdomen: soft, tenderness, distension Extremities: no edema, no cyanosis Skin: warm, dry Psy/Mental Status: alert, normal affect - Problem List & Annotations (1) Acute pancreatitis SNOMED Code(s): 211135857 Code(s): K85.90 - ACUTE PANCREATITIS WITHOUT NECROSIS OR INFECTION, UNSP Status: Acute Current Visit: Yes Qualifiers: Pancreatitis type: unspecified pancreatitis type Acute pancreatitis complication: no infection or necrosis Qualified Code(s): K85.90 - Acute pancreatitis without necrosis or infection, unspecified (2) Tobacco dependence syndrome SNOMED Code(s): 10440519 Code(s): F17.200 - NICOTINE DEPENDENCE, UNSPECIFIED, UNCOMPLICATED Status: Chronic Current Visit: No (3) Acute bronchitis SNOMED Code(s): 98052198 Code(s): J20.9 - ACUTE BRONCHITIS, UNSPECIFIED Status: Acute Current Visit: No Qualifiers: Bronchitis organism: unspecified organism Qualified Code(s): J20.9 - Acute bronchitis, unspecified - Problem List Review Problem List Initiated/Reviewed/Updated: Yes - My Orders Last 24 Hours: My Active Orders 12/05/16 13:00 Bisacodyl [Dulcolax] 10 mg PO DAILY PRN 12/06/16 11:00 Potassium Chloride 20 meq Lidocaine 1% [Xylocaine 1%] 2 ml Sodium Chloride 0.9 % [Normal Saline] 100 ml IV Q2H 12/06/16 11:15 D5 1/2 NS w/ 20 mEq/L KCl 1,000 ml IV ASDIRECTED 12/06/16 12:49 Magnesium Citrate [Citrate of Magnesia] 296 ml PO ONETIME ONE 12/07/16 05:00 BASIC METABOLIC PANEL,BMP [CHEM] Timed CBC W/O DIFF,HEMOGRAM [HEME] Timed (1) LIPASE [CHEM] Timed - Plan Plan:: Assessment and plan - Acute pancreatitis - impressive retroperitoneal edema and significant elevation of lipase and white blood cell count. pain is a little better again today and white count is trending down as is the lipase. Still feels bloated and distended. Blood sugar a little on the low side this morning. Tolerating ice chips. 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 She has completed her prednisone burst. mild hypoxia but no wheezing with examination. -Supplement oxygen as needed -Continue nebulizers -Closely monitor respiratory status Hypokalemia - mild and will be replaced today. -Repeat labs in the morning Tobacco dependence - tobacco cessation information will be provided and nicotine supplementation will be provided as requested. Maintenance issues - - DVT prophylaxis - mechanical - GI prophylaxis - PPI - Nutrition - nothing by mouth Disposition - anticipate discharge to home after the hospital stay Collins Stokes M.D.
[2016-12-06] MEDS: Acetaminophen 325 MG Tab PO PRN (18:17)
[2016-12-06] MEDS: HYDROmorphone/Normal Saline 15 MG/30 ML PCA IV PRN (18:36)
[2016-12-06] MEDS ORDERED: Sodium Phosphate,Monobasic/Sodium Phosphate,Dibasic Enema 133 ML Bottle RECTAL ONE (20:04)
--- NOTE | 2016-12-06 20:24 | PCM.SN ---
- Free Text/Narrative Note: during evening report; Mrs. Crews still hasn't had a bowel movement. now walking bent over due to pain, abdomen distension noted a; constipation p; order fleets enema. continue medications as scheduled.
[2016-12-07] MEDS: D5 1/2 NS w/ 20 mEq/L KCl 1,000 ML IV SCH (01:49)
[2016-12-07] MEDS: Albuterol 0.083% 2.5 MG/3 ML Neb Soln INH SCH ×4 (07:17→20:53)
[2016-12-07] MEDS: Nicotine 21 MG/24 Hr Patch TRDERM SCH (08:59)
[2016-12-07] MEDS: Pantoprazole 40 MG Vial IV SCH (08:59)
[2016-12-07] MEDS ORDERED: D5 1/2 NS w/ 20 mEq/L KCl 1,000 ML IV SCH (11:23)
--- NOTE | 2016-12-07 11:36 | PCM.PN ---
- General Info Date of Service: 12/07/16 Functional Status: Reports: pain controlled, ambulating - Review of Systems General: Reports: Weakness Pulmonary: Reports: shortness of breath Gastrointestinal: Reports: Abdominal pain Systems Review Comment:: No acute events overnight. She did finally have a large bowel movement this morning and her abdominal distention has improved significantly. She has very minimal if any left sided abdominal pain this morning. She has not had any nausea and her appetite has returned. She continues to require 2 L of supplemental oxygen. Still has mild rises in her heart rate with activity. Lipase level is nearly normal and white blood cell count continues to improve. - Patient Data Vitals - most recent: Last Vital Signs Temp 37.6 C 12/07/16 07:00 Pulse 70 12/07/16 11:00 Resp 18 12/07/16 11:00 BP 120/62 12/07/16 11:00 Pulse Ox 96 12/07/16 11:00 Weight - most recent: 50.349 kg I&O - last 24 hours: Intake & Output 12/06/16 12/07/16 12/07/16 22:59 06:59 14:59 Intake Total 626 Output Total 1025 700 900 Balance -399 -700 -900 Lab Results last 24 hrs: Laboratory Results - last 24 hr 12/07/16 12/07/16 Range/Units 05:30 05:30 WBC 16.1 H (4.5-11.0) K/uL RBC 3.97 (3.30-5.50) M/uL Hgb 12.9 (12.0-15.0) g/dL Hct 37.4 (36.0-48.0) % MCV 94 (80-98) fL MCH 33 H (27-31) pg MCHC 35 (32-36) % Plt Count 220 (150-400) K/uL Sodium 133 L (140-148) mmol/L Potassium 3.4 L (3.6-5.2) mmol/L Chloride 98 L (100-108) mmol/L Carbon Dioxide 30 (21-32) mmol/L Anion Gap 8.4 (5.0-14.0) mmol/L BUN 5 L (7-18) mg/dL Creatinine 0.4 L (0.6-1.0) mg/dL Est Cr Clr Drug Dosing 135.22 mL/min Estimated GFR (MDRD) > 60 (>60) Glucose 121 H (74-106) mg/dL Calcium 7.9 L (8.5-10.1) mg/dL Lipase 451 H (73-393) U/L Med Orders - Current: Current Medications Acetaminophen (Tylenol) 650 mg PO Q4H PRN PRN Reason: Pain (Mild 1-3)/fever Last Admin: 12/06/16 18:17 Dose: 650 mg Albuterol (Proventil Neb Soln) 2.5 mg INH QIDRT [facility] Last Admin: 12/07/16 11:02 Dose: 2.5 mg Albuterol (Proventil Neb Soln) 2.5 mg NEB Q4H PRN PRN Reason: Shortness Of Breath/wheezing Bisacodyl (Dulcolax) 10 mg PO DAILY PRN PRN Reason: Constipation Furosemide (Lasix) 20 mg IVPUSH ONETIME ONE Stop: 12/07/16 12:01 Potassium Chloride 20 meq/Lidocaine HCl 2 ml/ Sodium Chloride 112 mls @ 56 mls/ hr IV Q2H [facility] Stop: 12/07/16 15:59 Potassium Chloride/Dextrose/Sod Cl (D5 1/2 Ns W/ 20 Meq/L Kcl) 1,000 mls @ 25 mls/hr IV ASDIRECTED [facility] Lorazepam (Ativan) 0.5 - 1 mg IVPUSH Q4H PRN PRN Reason: Nausea/Vomiting Naloxone HCl (Narcan) 0.1 mg IVPUSH Q2M PRN PRN Reason: Respiratory Distress Nicotine (Habitrol) 21 mg TRDERM DAILY [facility] Last Admin: 12/07/16 08:59 Dose: 21 mg Ondansetron HCl (Zofran Odt) 4 mg PO Q6H PRN PRN Reason: Nausea able to take PO Ondansetron HCl (Zofran) 4 mg IV Q6H PRN PRN Reason: Nausea/Vomiting Last Admin: 12/05/16 10:37 Dose: 4 mg Oxycodone HCl (Oxycodone) 5 - 10 mg PO Q4H PRN PRN Reason: Pain Polyethylene Glycol (Miralax) 17 gm PO DAILY PRN PRN Reason: Constipation Last Admin: 12/03/16 10:27 Dose: 17 gm Senna/Docusate Sodium (Senna Plus) 1 tab PO BID PRN PRN Reason: Constipation Last Admin: 12/03/16 10:27 Dose: 1 tab Discontinued Medications Bisacodyl (Dulcolax) 5 mg PO DAILY PRN PRN Reason: Constipation Last Admin: 12/05/16 07:40 Dose: 5 mg Hydromorphone HCl (Dilaudid) 0.5 mg IVPUSH ONETIME ONE Stop: 12/03/16 03:04 Last Admin: 12/03/16 03:12 Dose: 0.5 mg Hydromorphone HCl (Dilaudid) 0.5 mg IVPUSH ONETIME ONE Stop: 12/03/16 03:33 Last Admin: 12/03/16 03:36 Dose: 0.5 mg Hydromorphone HCl (Dilaudid) 0.5 mg IVPUSH ONETIME ONE Stop: 12/03/16 06:01 Last Admin: 12/03/16 06:03 Dose: 0.5 mg Hydromorphone HCl (Dilaudid) Confirm Administered Dose 0.5 mg .ROUTE .STK-MED ONE Stop: 12/03/16 05:58 Last Admin: 12/03/16 06:03 Dose: Not Given Hydromorphone HCl (Dilaudid Combustion Analyst 15 Mg In Ns 30 Ml) 0 mg IV ASDIRECTED PRN; Protocol PRN Reason: Pain Last Admin: 12/06/16 18:36 Dose: 15 mg Sodium Chloride (Normal Saline) 1,000 mls @ 500 mls/hr IV ASDIRECTED [facility] Last Admin: 12/03/16 03:11 Dose: 500 mls/hr Sodium Chloride (Normal Saline) 70 mls @ 3 mls/sec IV ASDIRECTED [facility] Stop: 12/03/16 03:48 Last Admin: 12/03/16 04:00 Dose: 3 mls/sec Sodium Chloride (Normal Saline) 1,000 mls @ 150 mls/hr IV ASDIRECTED [facility] Last Admin: 12/05/16 10:49 Dose: 150 mls/hr Sodium Chloride (Normal Saline) 1,000 mls @ 75 mls/hr IV ASDIRECTED [facility] Last Admin: 12/06/16 05:45 Dose: 75 mls/hr Potassium Chloride 20 meq/Lidocaine HCl 2 ml/ Sodium Chloride 112 mls @ 50 mls/ hr IV Q2H [facility] Stop: 12/06/16 14:59 Last Admin: 12/06/16 13:19 Dose: 50 mls/hr Potassium Chloride/Dextrose/Sod Cl (D5 1/2 Ns W/ 20 Meq/L Kcl) 1,000 mls @ 75 mls/hr IV ASDIRECTED [facility] Last Admin: 12/07/16 01:49 Dose: 75 mls/hr Iopamidol (Isovue-300 (61%)) 68 ml IV . DIRECTED [facility] Stop: 12/03/16 03:48 Last Admin: 12/03/16 03:59 Dose: 100 ml Magnesium Citrate (Citrate Of Magnesia) 296 ml PO ONETIME ONE Stop: 12/06/16 12:50 Last Admin: 12/06/16 13:23 Dose: 296 ml Magnesium Hydroxide (Milk Of Magnesia) 30 ml PO ONETIME ONE Stop: 12/05/16 12:52 Last Admin: 12/05/16 14:14 Dose: 30 ml Ondansetron HCl (Zofran) 4 mg IVPUSH ONETIME ONE Stop: 12/03/16 05:52 Last Admin: 12/03/16 05:59 Dose: 4 mg Ondansetron HCl (Zofran) Confirm Administered Dose 4 mg .ROUTE .STK-MED ONE Stop: 12/03/16 05:58 Last Admin: 12/03/16 06:03 Dose: Not Given Pantoprazole Sodium (Protonix Iv) 40 mg IV Q12H [facility] Last Admin: 12/07/16 08:59 Dose: 40 mg Sodium Biphosphate/Sodium Phosphate (Fleet Enema) 133 ml RECTAL ONETIME ONE Stop: 12/06/16 20:05 Last Admin: 12/06/16 20:19 Dose: 133 ml - Exam Quality Assessment: supplemental oxygen General: alert, oriented, cooperative, no acute distress Neck: supple Lungs: Clear to auscultation, Normal respiratory effort, Decreased breath sounds (slight left lung base) Cardiovascular: Regular Rate, Regular Rhythm, No Murmurs Abdomen: bowel sounds present, soft, distension (mild). No: tenderness Extremities: normal pulses, edema (mild of hands and ankles) Skin: warm, dry Psy/Mental Status: alert, normal affect - Problem List & Annotations (1) Acute pancreatitis SNOMED Code(s): 694377420 Code(s): K85.90 - ACUTE PANCREATITIS WITHOUT NECROSIS OR INFECTION, UNSP Status: Acute Current Visit: Yes Qualifiers: Pancreatitis type: unspecified pancreatitis type Acute pancreatitis complication: no infection or necrosis Qualified Code(s): K85.90 - Acute pancreatitis without necrosis or infection, unspecified (2) Tobacco dependence syndrome SNOMED Code(s): 75580986 Code(s): F17.200 - NICOTINE DEPENDENCE, UNSPECIFIED, UNCOMPLICATED Status: Chronic Current Visit: No (3) Acute bronchitis SNOMED Code(s): 17950865 Code(s): J20.9 - ACUTE BRONCHITIS, UNSPECIFIED Status: Acute Current Visit: No Qualifiers: Bronchitis organism: unspecified organism Qualified Code(s): J20.9 - Acute bronchitis, unspecified - Problem List Review Problem List Initiated/Reviewed/Updated: Yes - My Orders Last 24 Hours: My Active Orders 12/07/16 10:00 Potassium Chloride 20 meq Lidocaine 1% [Xylocaine 1%] 2 ml Sodium Chloride 0.9 % [Normal Saline] 100 ml IV Q2H 12/07/16 11:23 D5 1/2 NS w/ 20 mEq/L KCl 1,000 ml IV ASDIRECTED 12/07/16 11:24 oxyCODONE 5 - 10 mg PO Q4H PRN 12/07/16 11:26 Discontinue Telemetry Monitoring [Cardiac Monitoring Discontinue] [RC] Click to Edit 12/07/16 11:27 Furosemide [Lasix] 20 mg IVPUSH ONETIME ONE 12/07/16 Lunch Clear Liquid Diet [DIET] 12/08/16 05:00 BASIC METABOLIC PANEL,BMP [CHEM] Timed CBC W/O DIFF,HEMOGRAM [HEME] Timed (1) MAGNESIUM [CHEM] Timed - Plan Plan:: Assessment and plan - Acute pancreatitis - impressive retroperitoneal edema and significant elevation of lipase and white blood cell count. Pain has nearly resolved and labs are much better today. Appetite has returned and she has had a bowel movement. -Pain control with oral medications -Anti-nausea medications -Saline lock IV -Trial of clear liquids -Discontinue his azithromycin, prednisone and avoid NSAIDs -Repeat CBC and BMP in the morning Recent acute bronchitis with COPD - no strong evidence for infection at this time and antibiotics have been discontinued. She has completed her prednisone burst. mild hypoxia but no wheezing with examination. I am planning a trial of gentle diuresis to see if extra volume is playing a role. -Furosemide 20 mg 1 this morning -Supplement oxygen as needed -Continue nebulizers -Closely monitor respiratory status Hypokalemia - level still mildly reduced and will be replaced today. -Supplement Potassium -Repeat labs in the morning Tobacco dependence - tobacco cessation information will be provided and nicotine supplementation will be provided as requested. Maintenance issues - - DVT prophylaxis - mechanical - GI prophylaxis - PPI - Nutrition - clear liquids Disposition - anticipate discharge to home after the hospital stay Collins Stokes M.D.
[2016-12-07] MEDS ORDERED: Furosemide 20 MG/2 ML VIAL IVPUSH ONE ×2 (12:00→14:15)
[2016-12-07] MEDS: Potassium Chloride 20 MEQ, Lidocaine 1% 2 ML in Sodium Chloride 0.9% 100 ML IV SCH ×3 (14:21→19:42)
[2016-12-07] MEDS: oxyCODONE 5 MG Tab PO PRN (19:42)
[2016-12-08] MEDS: oxyCODONE 5 MG Tab PO PRN ×5 (00:02→23:36)
[2016-12-08] MEDS: Albuterol 0.083% 2.5 MG/3 ML Neb Soln INH SCH ×4 (07:10→21:29)
[2016-12-08] MEDS: Nicotine 21 MG/24 Hr Patch TRDERM SCH (09:04)
[2016-12-08] MEDS ORDERED: Sodium Chloride 0.9% 10 ML Syringe FLUSH PRN (09:42)
[2016-12-08] MEDS ORDERED: Iopamidol 612 MG/ML 100 ML Bottle IV PRN (09:42)
--- NOTE | 2016-12-08 10:57 | PCM.PN ---
- General Info Date of Service: 12/08/16 - Patient Data Vitals - most recent: Last Vital Signs Temp 97.9 F 12/08/16 07:45 Pulse 93 12/08/16 07:45 Resp 20 12/08/16 07:45 BP 95/65 12/08/16 07:45 Pulse Ox 92 L 12/08/16 07:45 Weight - most recent: 111 lb I&O - last 24 hours: Intake & Output 12/07/16 12/08/16 12/08/16 22:59 06:59 14:59 Intake Total 1579 525 480 Output Total 2807 900 900 Balance -3094 -552 -611 Lab Results last 24 hrs: Laboratory Results - last 24 hr 12/08/16 12/08/16 12/08/16 Range/Units 05:30 05:46 05:46 WBC 20.5 H (4.5-11.0) K/uL RBC 4.00 (3.30-5.50) M/uL Hgb 13.1 (12.0-15.0) g/dL Hct 38.1 (36.0-48.0) % MCV 95 (80-98) fL MCH 33 H (27-31) pg MCHC 34 (32-36) % Plt Count 238 (150-400) K/uL Sodium 131 L (140-148) mmol/L Potassium 5.3 H (3.6-5.2) mmol/L Chloride 100 (100-108) mmol/L Carbon Dioxide 30 (21-32) mmol/L Anion Gap 6.3 (5.0-14.0) mmol/L BUN 5 L (7-18) mg/dL Creatinine 0.4 L (0.6-1.0) mg/dL Est Cr Clr Drug Dosing 135.22 mL/min Estimated GFR (MDRD) > 60 (>60) Glucose 92 (74-106) mg/dL Calcium 7.9 L (8.5-10.1) mg/dL Magnesium 2.1 (1.8-2.4) mg/dL Lipase 404 H (73-393) U/L Med Orders - Current: Current Medications Acetaminophen (Tylenol) 650 mg PO Q4H PRN PRN Reason: Pain (Mild 1-3)/fever Last Admin: 12/06/16 18:17 Dose: 650 mg Albuterol (Proventil Neb Soln) 2.5 mg INH QIDRT [facility] Last Admin: 12/08/16 10:52 Dose: 2.5 mg Albuterol (Proventil Neb Soln) 2.5 mg NEB Q4H PRN PRN Reason: Shortness Of Breath/wheezing Bisacodyl (Dulcolax) 10 mg PO DAILY PRN PRN Reason: Constipation Lorazepam (Ativan) 0.5 - 1 mg IVPUSH Q4H PRN PRN Reason: Nausea/Vomiting Naloxone HCl (Narcan) 0.1 mg IVPUSH Q2M PRN PRN Reason: Respiratory Distress Nicotine (Habitrol) 21 mg TRDERM DAILY [facility] Last Admin: 12/08/16 09:04 Dose: 21 mg Ondansetron HCl (Zofran Odt) 4 mg PO Q6H PRN PRN Reason: Nausea able to take PO Ondansetron HCl (Zofran) 4 mg IV Q6H PRN PRN Reason: Nausea/Vomiting Last Admin: 12/05/16 10:37 Dose: 4 mg Oxycodone HCl (Oxycodone) 5 - 10 mg PO Q4H PRN PRN Reason: Pain Last Admin: 12/08/16 07:35 Dose: 10 mg Polyethylene Glycol (Miralax) 17 gm PO DAILY PRN PRN Reason: Constipation Last Admin: 12/03/16 10:27 Dose: 17 gm Senna/Docusate Sodium (Senna Plus) 1 tab PO BID PRN PRN Reason: Constipation Last Admin: 12/03/16 10:27 Dose: 1 tab Sodium Chloride (Saline Flush) 10 ml FLUSH ONETIME PRN PRN Reason: PER RADIOLOGY PROTOCOL Last Admin: 12/08/16 10:17 Dose: 10 ml Discontinued Medications Bisacodyl (Dulcolax) 5 mg PO DAILY PRN PRN Reason: Constipation Last Admin: 12/05/16 07:40 Dose: 5 mg Furosemide (Lasix) 20 mg IVPUSH ONETIME ONE Stop: 12/07/16 12:01 Last Admin: 12/07/16 14:21 Dose: 20 mg Furosemide (Lasix) 20 mg IVPUSH ONETIME ONE Stop: 12/07/16 14:16 Last Admin: 12/07/16 14:42 Dose: Not Given Hydromorphone HCl (Dilaudid) 0.5 mg IVPUSH ONETIME ONE Stop: 12/03/16 03:04 Last Admin: 12/03/16 03:12 Dose: 0.5 mg Hydromorphone HCl (Dilaudid) 0.5 mg IVPUSH ONETIME ONE Stop: 12/03/16 03:33 Last Admin: 12/03/16 03:36 Dose: 0.5 mg Hydromorphone HCl (Dilaudid) 0.5 mg IVPUSH ONETIME ONE Stop: 12/03/16 06:01 Last Admin: 12/03/16 06:03 Dose: 0.5 mg Hydromorphone HCl (Dilaudid) Confirm Administered Dose 0.5 mg .ROUTE .STK-MED ONE Stop: 12/03/16 05:58 Last Admin: 12/03/16 06:03 Dose: Not Given Hydromorphone HCl (Dilaudid Docket Clerk 15 Mg In Ns 30 Ml) 0 mg IV ASDIRECTED PRN; Protocol PRN Reason: Pain Last Admin: 12/06/16 18:36 Dose: 15 mg Sodium Chloride (Normal Saline) 1,000 mls @ 500 mls/hr IV ASDIRECTED [facility] Last Admin: 12/03/16 03:11 Dose: 500 mls/hr Sodium Chloride (Normal Saline) 70 mls @ 3 mls/sec IV ASDIRECTED [facility] Stop: 12/03/16 03:48 Last Admin: 12/03/16 04:00 Dose: 3 mls/sec Sodium Chloride (Normal Saline) 1,000 mls @ 150 mls/hr IV ASDIRECTED [facility] Last Admin: 12/05/16 10:49 Dose: 150 mls/hr Sodium Chloride (Normal Saline) 1,000 mls @ 75 mls/hr IV ASDIRECTED [facility] Last Admin: 12/06/16 05:45 Dose: 75 mls/hr Potassium Chloride 20 meq/Lidocaine HCl 2 ml/ Sodium Chloride 112 mls @ 50 mls/ hr IV Q2H [facility] Stop: 12/06/16 14:59 Last Admin: 12/06/16 13:19 Dose: 50 mls/hr Potassium Chloride/Dextrose/Sod Cl (D5 1/2 Ns W/ 20 Meq/L Kcl) 1,000 mls @ 75 mls/hr IV ASDIRECTED [facility] Last Admin: 12/07/16 01:49 Dose: 75 mls/hr Potassium Chloride 20 meq/Lidocaine HCl 2 ml/ Sodium Chloride 112 mls @ 56 mls/ hr IV Q2H [facility] Stop: 12/07/16 15:59 Last Admin: 12/07/16 19:42 Dose: 56 mls/hr Potassium Chloride/Dextrose/Sod Cl (D5 1/2 Ns W/ 20 Meq/L Kcl) 1,000 mls @ 25 mls/hr IV ASDIRECTED [facility] Last Admin: 12/07/16 16:51 Dose: 25 mls/hr Sodium Chloride (Normal Saline) 70 mls @ 3 mls/sec IV ONETIME ONE Stop: 12/08/16 09:43 Last Admin: 12/08/16 10:17 Dose: 3 mls/sec Iopamidol (Isovue-300 (61%)) 68 ml IV . DIRECTED [facility] Stop: 12/03/16 03:48 Last Admin: 12/03/16 03:59 Dose: 100 ml Iopamidol (Isovue-300 (61%)) 75 ml IV . DIRECTED PRN PRN Reason: RADIOLOGY EXAM Stop: 12/08/16 09:43 Last Admin: 12/08/16 10:18 Dose: 100 ml Magnesium Citrate (Citrate Of Magnesia) 296 ml PO ONETIME ONE Stop: 12/06/16 12:50 Last Admin: 12/06/16 13:23 Dose: 296 ml Magnesium Hydroxide (Milk Of Magnesia) 30 ml PO ONETIME ONE Stop: 12/05/16 12:52 Last Admin: 12/05/16 14:14 Dose: 30 ml Ondansetron HCl (Zofran) 4 mg IVPUSH ONETIME ONE Stop: 12/03/16 05:52 Last Admin: 12/03/16 05:59 Dose: 4 mg Ondansetron HCl (Zofran) Confirm Administered Dose 4 mg .ROUTE .STK-MED ONE Stop: 12/03/16 05:58 Last Admin: 12/03/16 06:03 Dose: Not Given Pantoprazole Sodium (Protonix Iv) 40 mg IV Q12H [facility] Last Admin: 12/07/16 08:59 Dose: 40 mg Sodium Biphosphate/Sodium Phosphate (Fleet Enema) 133 ml RECTAL ONETIME ONE Stop: 12/06/16 20:05 Last Admin: 12/06/16 20:19 Dose: 133 ml - My Orders Last 24 Hours: My Active Orders 12/08/16 09:20 Abdomen Pelvis w Cont [CT] Stat 12/08/16 09:42 Sodium Chloride 0.9% [Saline Flush] 10 ml FLUSH ONETIME PRN 12/08/16 10:56 Convert IV to Saline Lock [OM.PC] Routine 12/08/16 Lunch Soft Diet [DIET] 12/09/16 05:00 BASIC METABOLIC PANEL,BMP [CHEM] Timed CBC WITH AUTO DIFF [HEME] Timed LIPASE [CHEM] Timed MAGNESIUM [CHEM] Timed - Plan Plan:: Assessment and plan - Acute pancreatitis - impressive retroperitoneal edema and significant elevation of lipase and white blood cell count. Pain has nearly resolved and labs are much better today. Appetite has returned and she has had a bowel movement. -Pain control with oral medications -Anti-nausea medications -Saline lock IV -Trial of clear liquids -Discontinue his azithromycin, prednisone and avoid NSAIDs -Repeat CBC and BMP in the morning Recent acute bronchitis with COPD - no strong evidence for infection at this time and antibiotics have been discontinued. She has completed her prednisone burst. mild hypoxia but no wheezing with examination. I am planning a trial of gentle diuresis to see if extra volume is playing a role. -Furosemide 20 mg 1 this morning -Supplement oxygen as needed -Continue nebulizers -Closely monitor respiratory status Hypokalemia - level still mildly reduced and will be replaced today. -Supplement Potassium -Repeat labs in the morning Tobacco dependence - tobacco cessation information will be provided and nicotine supplementation will be provided as requested. Maintenance issues - - DVT prophylaxis - mechanical - GI prophylaxis - PPI - Nutrition - clear liquids Disposition - anticipate discharge to home after the hospital stay Collins Stokes M.D.
--- NOTE | 2016-12-08 11:05 | CT ---
Abdomen Pelvis w Cont Total DLP 404 mGycm. INDICATION: Pancreatitis, persistent leukocytosis COMPARISON: CT 12/03/2016. FINDINGS: Stable 4 mm granuloma in the lateral right lower lobe. Splenectomy. New small to moderate left and small right pleural effusions with associated compressive atelectasis. Stable retroperitone al fluid and small amount of ascites about the liver and within the pelvis. New mild anasarca has de veloped. The pancreas demonstrates normal enhancement without evidence for necrosis. Kidneys, liver, gallbladder, and adrenal glands are negative. Decreased stool within the colon. Dilated small bowel loops on the prior exam have improved and are now normal in caliber. Exam otherwise unremarkable. IMPRESSION: 1. New pleural effusions and compressive atelectasis. 2. Stable retroperitoneal fluid and ascites in the abdomen and pelvis. 3. No evidence for pancreatic necrosis. 4. Small bowel loops are now normal in caliber. 5. New mild anasarca.
[2016-12-08] MEDS: Acetaminophen 325 MG Tab PO PRN ×2 (11:09→19:40)
[2016-12-08] MEDS ORDERED: Furosemide 20 MG/2 ML VIAL IVPUSH ONE (11:45)
--- NOTE | 2016-12-08 12:26 | PCM.PN ---
- General Info Date of Service: 12/08/16 Functional Status: Reports: pain controlled, tolerating diet, ambulating, urinating - Review of Systems General: Reports: Weakness. Denies: Fever, Chills Pulmonary: Reports: shortness of breath. Denies: pleuritic chest pain, cough, sputum, hemoptysis, wheezing Cardiovascular: Reports: Dyspnea on Exertion, Edema. Denies: Chest Pain, Palpitations, Orthopnea, PND Gastrointestinal: Reports: Abdominal pain. Denies: Diarrhea, Difficulty swallowing, Nausea, Vomiting Systems Review Comment:: This patient has noted further improvement since yesterday, abdominal pain has almost totally resolved. She is tolerated a clear liquid diet and has experienced no nausea or vomiting. Lipase level is further improved today although her white count did jump up to 20,000. CT scan of the abdomen and pelvis repeated showing no evidence of pseudocyst formation or necrosis. - Patient Data Vitals - most recent: Last Vital Signs Temp 98.3 F 12/08/16 10:58 Pulse 93 12/08/16 10:58 Resp 18 12/08/16 10:58 BP 88/53 L 12/08/16 10:58 Pulse Ox 98 12/08/16 10:58 Weight - most recent: 111 lb I&O - last 24 hours: Intake & Output 12/07/16 12/08/16 12/08/16 22:59 06:59 14:59 Intake Total 1579 525 480 Output Total 2800 900 900 Balance -1221 -293 -420 Lab Results last 24 hrs: Laboratory Results - last 24 hr 12/08/16 12/08/16 12/08/16 Range/Units 05:30 05:46 05:46 WBC 20.5 H (4.5-11.0) K/uL RBC 4.00 (3.30-5.50) M/uL Hgb 13.1 (12.0-15.0) g/dL Hct 38.1 (36.0-48.0) % MCV 95 (80-98) fL MCH 33 H (27-31) pg MCHC 34 (32-36) % Plt Count 238 (150-400) K/uL Sodium 131 L (140-148) mmol/L Potassium 5.3 H (3.6-5.2) mmol/L Chloride 100 (100-108) mmol/L Carbon Dioxide 30 (21-32) mmol/L Anion Gap 6.3 (5.0-14.0) mmol/L BUN 5 L (7-18) mg/dL Creatinine 0.4 L (0.6-1.0) mg/dL Est Cr Clr Drug Dosing 135.22 mL/min Estimated GFR (MDRD) > 60 (>60) Glucose 92 (74-106) mg/dL Calcium 7.9 L (8.5-10.1) mg/dL Magnesium 2.1 (1.8-2.4) mg/dL Lipase 404 H (73-393) U/L Med Orders - Current: Current Medications Acetaminophen (Tylenol) 650 mg PO Q4H PRN PRN Reason: Pain (Mild 1-3)/fever Last Admin: 12/08/16 11:09 Dose: 650 mg Albuterol (Proventil Neb Soln) 2.5 mg INH QIDRT [facility] Last Admin: 12/08/16 10:52 Dose: 2.5 mg Albuterol (Proventil Neb Soln) 2.5 mg NEB Q4H PRN PRN Reason: Shortness Of Breath/wheezing Bisacodyl (Dulcolax) 10 mg PO DAILY PRN PRN Reason: Constipation Furosemide (Lasix) 20 mg IVPUSH NOW ONE Stop: 12/09/16 08:01 Lorazepam (Ativan) 0.5 - 1 mg IVPUSH Q4H PRN PRN Reason: Nausea/Vomiting Naloxone HCl (Narcan) 0.1 mg IVPUSH Q2M PRN PRN Reason: Respiratory Distress Nicotine (Habitrol) 21 mg TRDERM DAILY [facility] Last Admin: 12/08/16 09:04 Dose: 21 mg Ondansetron HCl (Zofran Odt) 4 mg PO Q6H PRN PRN Reason: Nausea able to take PO Ondansetron HCl (Zofran) 4 mg IV Q6H PRN PRN Reason: Nausea/Vomiting Last Admin: 12/05/16 10:37 Dose: 4 mg Oxycodone HCl (Oxycodone) 5 - 10 mg PO Q4H PRN PRN Reason: Pain Last Admin: 12/08/16 12:21 Dose: 10 mg Polyethylene Glycol (Miralax) 17 gm PO DAILY PRN PRN Reason: Constipation Last Admin: 12/03/16 10:27 Dose: 17 gm Senna/Docusate Sodium (Senna Plus) 1 tab PO BID PRN PRN Reason: Constipation Last Admin: 12/03/16 10:27 Dose: 1 tab Sodium Chloride (Saline Flush) 10 ml FLUSH ONETIME PRN PRN Reason: PER RADIOLOGY PROTOCOL Last Admin: 12/08/16 10:17 Dose: 10 ml Discontinued Medications Bisacodyl (Dulcolax) 5 mg PO DAILY PRN PRN Reason: Constipation Last Admin: 12/05/16 07:40 Dose: 5 mg Furosemide (Lasix) 20 mg IVPUSH ONETIME ONE Stop: 12/07/16 12:01 Last Admin: 12/07/16 14:21 Dose: 20 mg Furosemide (Lasix) 20 mg IVPUSH ONETIME ONE Stop: 12/07/16 14:16 Last Admin: 12/07/16 14:42 Dose: Not Given Furosemide (Lasix) 20 mg IVPUSH NOW ONE Stop: 12/08/16 11:46 Hydromorphone HCl (Dilaudid) 0.5 mg IVPUSH ONETIME ONE Stop: 12/03/16 03:04 Last Admin: 12/03/16 03:12 Dose: 0.5 mg Hydromorphone HCl (Dilaudid) 0.5 mg IVPUSH ONETIME ONE Stop: 12/03/16 03:33 Last Admin: 12/03/16 03:36 Dose: 0.5 mg Hydromorphone HCl (Dilaudid) 0.5 mg IVPUSH ONETIME ONE Stop: 12/03/16 06:01 Last Admin: 12/03/16 06:03 Dose: 0.5 mg Hydromorphone HCl (Dilaudid) Confirm Administered Dose 0.5 mg .ROUTE .STK-MED ONE Stop: 12/03/16 05:58 Last Admin: 12/03/16 06:03 Dose: Not Given Hydromorphone HCl (Dilaudid Java Application Developer 15 Mg In Ns 30 Ml) 0 mg IV ASDIRECTED PRN; Protocol PRN Reason: Pain Last Admin: 12/06/16 18:36 Dose: 15 mg Sodium Chloride (Normal Saline) 1,000 mls @ 500 mls/hr IV ASDIRECTED [facility] Last Admin: 12/03/16 03:11 Dose: 500 mls/hr Sodium Chloride (Normal Saline) 70 mls @ 3 mls/sec IV ASDIRECTED STA Stop: 12/03/16 03:48 Last Admin: 12/03/16 04:00 Dose: 3 mls/sec Sodium Chloride (Normal Saline) 1,000 mls @ 150 mls/hr IV ASDIRECTED [facility] Last Admin: 12/05/16 10:49 Dose: 150 mls/hr Sodium Chloride (Normal Saline) 1,000 mls @ 75 mls/hr IV ASDIRECTED [facility] Last Admin: 12/06/16 05:45 Dose: 75 mls/hr Potassium Chloride 20 meq/Lidocaine HCl 2 ml/ Sodium Chloride 112 mls @ 50 mls/ hr IV Q2H [facility] Stop: 12/06/16 14:59 Last Admin: 12/06/16 13:19 Dose: 50 mls/hr Potassium Chloride/Dextrose/Sod Cl (D5 1/2 Ns W/ 20 Meq/L Kcl) 1,000 mls @ 75 mls/hr IV ASDIRECTED [facility] Last Admin: 12/07/16 01:49 Dose: 75 mls/hr Potassium Chloride 20 meq/Lidocaine HCl 2 ml/ Sodium Chloride 112 mls @ 56 mls/ hr IV Q2H [facility] Stop: 12/07/16 15:59 Last Admin: 12/07/16 19:42 Dose: 56 mls/hr Potassium Chloride/Dextrose/Sod Cl (D5 1/2 Ns W/ 20 Meq/L Kcl) 1,000 mls @ 25 mls/hr IV ASDIRECTED [facility] Last Admin: 12/07/16 16:51 Dose: 25 mls/hr Sodium Chloride (Normal Saline) 70 mls @ 3 mls/sec IV ONETIME ONE Stop: 12/08/16 09:43 Last Admin: 12/08/16 10:17 Dose: 3 mls/sec Iopamidol (Isovue-300 (61%)) 68 ml IV . DIRECTED [facility] Stop: 12/03/16 03:48 Last Admin: 12/03/16 03:59 Dose: 100 ml Iopamidol (Isovue-300 (61%)) 75 ml IV . DIRECTED PRN PRN Reason: RADIOLOGY EXAM Stop: 12/08/16 09:43 Last Admin: 12/08/16 10:18 Dose: 100 ml Magnesium Citrate (Citrate Of Magnesia) 296 ml PO ONETIME ONE Stop: 12/06/16 12:50 Last Admin: 12/06/16 13:23 Dose: 296 ml Magnesium Hydroxide (Milk Of Magnesia) 30 ml PO ONETIME ONE Stop: 12/05/16 12:52 Last Admin: 12/05/16 14:14 Dose: 30 ml Ondansetron HCl (Zofran) 4 mg IVPUSH ONETIME ONE Stop: 12/03/16 05:52 Last Admin: 12/03/16 05:59 Dose: 4 mg Ondansetron HCl (Zofran) Confirm Administered Dose 4 mg .ROUTE .STK-MED ONE Stop: 12/03/16 05:58 Last Admin: 12/03/16 06:03 Dose: Not Given Pantoprazole Sodium (Protonix Iv) 40 mg IV Q12H [facility] Last Admin: 12/07/16 08:59 Dose: 40 mg Sodium Biphosphate/Sodium Phosphate (Fleet Enema) 133 ml RECTAL ONETIME ONE Stop: 12/06/16 20:05 Last Admin: 12/06/16 20:19 Dose: 133 ml - Exam Quality Assessment: DVT prophylaxis General: alert, oriented, cooperative Lungs: Clear to auscultation, Normal respiratory effort, Decreased breath sounds. No: Wheezing Cardiovascular: Regular Rate, Regular Rhythm, No Murmurs Abdomen: bowel sounds present, soft, no distension, tenderness. No: rigidity, rebound, guarding, distension Extremities: edema Skin: warm, dry, intact - Problem List Review Problem List Initiated/Reviewed/Updated: Yes - My Orders Last 24 Hours: My Active Orders 12/08/16 09:42 Sodium Chloride 0.9% [Saline Flush] 10 ml FLUSH ONETIME PRN 12/08/16 10:56 Convert IV to Saline Lock [OM.PC] Routine 12/08/16 Lunch Soft Diet [DIET] 12/09/16 05:00 BASIC METABOLIC PANEL,BMP [CHEM] Timed CBC WITH AUTO DIFF [HEME] Timed LIPASE [CHEM] Timed MAGNESIUM [CHEM] Timed 12/09/16 08:00 Furosemide [Lasix] 20 mg IVPUSH NOW ONE - Plan Plan:: Assessment and plan - Acute pancreatitis - impressive retroperitoneal edema and significant elevation of lipase and white blood cell count. Pain has further improved, lipase decreased from yesterday. White blood cell count increased, but CT scan shows no evidence of necrosis or pseudocyst formation -Pain control with oral medications -Anti-nausea medications -Saline lock IV -Trial of clear liquids -Discontinue his azithromycin, prednisone and avoid NSAIDs -Repeat CBC, lipase, and BMP in the morning Recent acute bronchitis with COPD - no strong evidence for infection at this time and antibiotics have been discontinued. She has completed her prednisone burst. mild hypoxia but no wheezing with examination. I am planning a trial of gentle diuresis to see if extra volume is playing a role. -Furosemide 20 mg today and again in a.m. -Supplement oxygen as needed -Continue nebulizers -Closely monitor respiratory status Hypokalemia - potassium level normal today -Repeat potassium level in a.m. Tobacco dependence - tobacco cessation information will be provided and nicotine supplementation will be provided as requested. Maintenance issues - - DVT prophylaxis - mechanical - GI prophylaxis - PPI - Nutrition - clear liquids Disposition - anticipate discharge to home after the hospital stay
[2016-12-09] MEDS: Albuterol 0.083% 2.5 MG/3 ML Neb Soln INH SCH ×4 (07:39→21:15)
[2016-12-09] MEDS: oxyCODONE 5 MG Tab PO PRN ×4 (07:58→23:07)
[2016-12-09] MEDS ORDERED: Furosemide 20 MG/2 ML VIAL IVPUSH ONE (08:00)
[2016-12-09] MEDS: Nicotine 21 MG/24 Hr Patch TRDERM SCH (09:01)
[2016-12-09] MEDS ORDERED: Potassium Chloride 20 MEQ Tab.ER PO ONE (10:00)
[2016-12-09] MEDS: Acetaminophen 325 MG Tab PO PRN (10:35)
--- NOTE | 2016-12-09 12:02 | PCM.PN ---
- General Info Date of Service: 12/09/16 Functional Status: Reports: pain controlled, tolerating diet, ambulating, urinating - Review of Systems General: Reports: Fever, Weakness. Denies: Chills Pulmonary: Reports: no symptoms Cardiovascular: Reports: No Symptoms Gastrointestinal: Reports: Abdominal pain. Denies: Diarrhea, Difficulty swallowing, Nausea, Vomiting Systems Review Comment:: This patient has been stable since yesterday, although abdominal pain has not totally resolved, it has improved since yesterday. She is tolerating a soft diet without significant difficulty. Vital signs have been good except first slight temperature elevation. White blood cell count remains elevated with no obvious source of infection at the present time. - Patient Data Vitals - most recent: Last Vital Signs Temp 100.1 F 12/09/16 07:00 Pulse 86 12/09/16 11:04 Resp 16 12/09/16 07:00 BP 100/64 12/09/16 07:00 Pulse Ox 94 L 12/09/16 07:00 Weight - most recent: 111 lb I&O - last 24 hours: Intake & Output 12/08/16 12/09/16 12/09/16 22:59 06:59 14:59 Intake Total 720 360 240 Output Total 900 1125 1950 Balance -347 -911 -9083 Lab Results last 24 hrs: Laboratory Results - last 24 hr 12/09/16 12/09/16 Range/Units 05:07 05:07 WBC 19.5 H (4.5-11.0) K/uL RBC 3.58 (3.30-5.50) M/uL Hgb 11.6 L (12.0-15.0) g/dL Hct 34.0 L (36.0-48.0) % MCV 95 (80-98) fL MCH 32 H (27-31) pg MCHC 34 (32-36) % Plt Count 274 (150-400) K/uL Neut % (Auto) 72 H (36-66) % Lymph % (Auto) 12 L (24-44) % [place] % (Auto) 13 H (2-6) % Eos % (Auto) 3 (2-4) % Baso % (Auto) 0 (0-1) % Sodium 137 L (140-148) mmol/L Potassium 3.5 L (3.6-5.2) mmol/L Chloride 102 (100-108) mmol/L Carbon Dioxide 32 (21-32) mmol/L Anion Gap 6.5 (5.0-14.0) mmol/L BUN 5 L (7-18) mg/dL Creatinine 0.5 L (0.6-1.0) mg/dL Est Cr Clr Drug Dosing 108.18 mL/min Estimated GFR (MDRD) > 60 (>60) Glucose 96 (74-106) mg/dL Calcium 8.0 L (8.5-10.1) mg/dL Magnesium 1.8 (1.8-2.4) mg/dL Lipase 355 (73-393) U/L Med Orders - Current: Current Medications Acetaminophen (Tylenol) 650 mg PO Q4H PRN PRN Reason: Pain (Mild 1-3)/fever Last Admin: 12/09/16 10:35 Dose: 650 mg Albuterol (Proventil Neb Soln) 2.5 mg INH QIDRT [facility] Last Admin: 12/09/16 11:03 Dose: 2.5 mg Albuterol (Proventil Neb Soln) 2.5 mg NEB Q4H PRN PRN Reason: Shortness Of Breath/wheezing Bisacodyl (Dulcolax) 10 mg PO DAILY PRN PRN Reason: Constipation Furosemide (Lasix) 20 mg IVPUSH NOW ONE Stop: 12/10/16 08:01 Lorazepam (Ativan) 0.5 - 1 mg IVPUSH Q4H PRN PRN Reason: Nausea/Vomiting Nicotine (Habitrol) 21 mg TRDERM DAILY [facility] Last Admin: 12/09/16 09:01 Dose: 21 mg Ondansetron HCl (Zofran Odt) 4 mg PO Q6H PRN PRN Reason: Nausea able to take PO Ondansetron HCl (Zofran) 4 mg IV Q6H PRN PRN Reason: Nausea/Vomiting Last Admin: 12/05/16 10:37 Dose: 4 mg Oxycodone HCl (Oxycodone) 5 - 10 mg PO Q4H PRN PRN Reason: Pain Last Admin: 12/09/16 07:58 Dose: 10 mg Polyethylene Glycol (Miralax) 17 gm PO DAILY PRN PRN Reason: Constipation Last Admin: 12/03/16 10:27 Dose: 17 gm Senna/Docusate Sodium (Senna Plus) 1 tab PO BID PRN PRN Reason: Constipation Last Admin: 12/03/16 10:27 Dose: 1 tab Sodium Chloride (Saline Flush) 10 ml FLUSH ONETIME PRN PRN Reason: PER RADIOLOGY PROTOCOL Last Admin: 12/08/16 10:17 Dose: 10 ml Discontinued Medications Bisacodyl (Dulcolax) 5 mg PO DAILY PRN PRN Reason: Constipation Last Admin: 12/05/16 07:40 Dose: 5 mg Furosemide (Lasix) 20 mg IVPUSH ONETIME ONE Stop: 12/07/16 12:01 Last Admin: 12/07/16 14:21 Dose: 20 mg Furosemide (Lasix) 20 mg IVPUSH ONETIME ONE Stop: 12/07/16 14:16 Last Admin: 12/07/16 14:42 Dose: Not Given Furosemide (Lasix) 20 mg IVPUSH NOW ONE Stop: 12/08/16 11:46 Last Admin: 12/08/16 12:29 Dose: 20 mg Furosemide (Lasix) 20 mg IVPUSH ONETIME ONE Stop: 12/09/16 08:01 Last Admin: 12/09/16 07:59 Dose: 20 mg Hydromorphone HCl (Dilaudid) 0.5 mg IVPUSH ONETIME ONE Stop: 12/03/16 03:04 Last Admin: 12/03/16 03:12 Dose: 0.5 mg Hydromorphone HCl (Dilaudid) 0.5 mg IVPUSH ONETIME ONE Stop: 12/03/16 03:33 Last Admin: 12/03/16 03:36 Dose: 0.5 mg Hydromorphone HCl (Dilaudid) 0.5 mg IVPUSH ONETIME ONE Stop: 12/03/16 06:01 Last Admin: 12/03/16 06:03 Dose: 0.5 mg Hydromorphone HCl (Dilaudid) Confirm Administered Dose 0.5 mg .ROUTE .STK-MED ONE Stop: 12/03/16 05:58 Last Admin: 12/03/16 06:03 Dose: Not Given Hydromorphone HCl (Dilaudid Core Worker 15 Mg In Ns 30 Ml) 0 mg IV ASDIRECTED PRN; Protocol PRN Reason: Pain Last Admin: 12/06/16 18:36 Dose: 15 mg Sodium Chloride (Normal Saline) 1,000 mls @ 500 mls/hr IV ASDIRECTED [facility] Last Admin: 12/03/16 03:11 Dose: 500 mls/hr Sodium Chloride (Normal Saline) 70 mls @ 3 mls/sec IV ASDIRECTED [facility] Stop: 12/03/16 03:48 Last Admin: 12/03/16 04:00 Dose: 3 mls/sec Sodium Chloride (Normal Saline) 1,000 mls @ 150 mls/hr IV ASDIRECTED [facility] Last Admin: 12/05/16 10:49 Dose: 150 mls/hr Sodium Chloride (Normal Saline) 1,000 mls @ 75 mls/hr IV ASDIRECTED [facility] Last Admin: 12/06/16 05:45 Dose: 75 mls/hr Potassium Chloride 20 meq/Lidocaine HCl 2 ml/ Sodium Chloride 112 mls @ 50 mls/ hr IV Q2H [facility] Stop: 12/06/16 14:59 Last Admin: 12/06/16 13:19 Dose: 50 mls/hr Potassium Chloride/Dextrose/Sod Cl (D5 1/2 Ns W/ 20 Meq/L Kcl) 1,000 mls @ 75 mls/hr IV ASDIRECTED [facility] Last Admin: 12/07/16 01:49 Dose: 75 mls/hr Potassium Chloride 20 meq/Lidocaine HCl 2 ml/ Sodium Chloride 112 mls @ 56 mls/ hr IV Q2H [facility] Stop: 12/07/16 15:59 Last Admin: 12/07/16 19:42 Dose: 56 mls/hr Potassium Chloride/Dextrose/Sod Cl (D5 1/2 Ns W/ 20 Meq/L Kcl) 1,000 mls @ 25 mls/hr IV ASDIRECTED [facility] Last Admin: 12/07/16 16:51 Dose: 25 mls/hr Sodium Chloride (Normal Saline) 70 mls @ 3 mls/sec IV ONETIME ONE Stop: 12/08/16 09:43 Last Admin: 12/08/16 10:17 Dose: 3 mls/sec Iopamidol (Isovue-300 (61%)) 68 ml IV . DIRECTED [facility]A Stop: 12/03/16 03:48 Last Admin: 12/03/16 03:59 Dose: 100 ml Iopamidol (Isovue-300 (61%)) 75 ml IV . DIRECTED PRN PRN Reason: RADIOLOGY EXAM Stop: 12/08/16 09:43 Last Admin: 12/08/16 10:18 Dose: 100 ml Magnesium Citrate (Citrate Of Magnesia) 296 ml PO ONETIME ONE Stop: 12/06/16 12:50 Last Admin: 12/06/16 13:23 Dose: 296 ml Magnesium Hydroxide (Milk Of Magnesia) 30 ml PO ONETIME ONE Stop: 12/05/16 12:52 Last Admin: 12/05/16 14:14 Dose: 30 ml Naloxone HCl (Narcan) 0.1 mg IVPUSH Q2M PRN PRN Reason: Respiratory Distress Ondansetron HCl (Zofran) 4 mg IVPUSH ONETIME ONE Stop: 12/03/16 05:52 Last Admin: 12/03/16 05:59 Dose: 4 mg Ondansetron HCl (Zofran) Confirm Administered Dose 4 mg .ROUTE .STK-MED ONE Stop: 12/03/16 05:58 Last Admin: 12/03/16 06:03 Dose: Not Given Pantoprazole Sodium (Protonix Iv) 40 mg IV Q12H [facility] Last Admin: 12/07/16 08:59 Dose: 40 mg Potassium Chloride (Klor-Con M20) 40 meq PO ONETIME ONE Stop: 12/09/16 10:01 Last Admin: 12/09/16 10:19 Dose: 40 meq Sodium Biphosphate/Sodium Phosphate (Fleet Enema) 133 ml RECTAL ONETIME ONE Stop: 12/06/16 20:05 Last Admin: 12/06/16 20:19 Dose: 133 ml - Exam Quality Assessment: supplemental oxygen, DVT prophylaxis General: alert, oriented, cooperative, mild distress Lungs: Decreased breath sounds. No: Crackles, Rales, Rhonchi, Wheezing Cardiovascular: Regular Rate, Regular Rhythm, No Murmurs Abdomen: bowel sounds present, soft, no distension, tenderness. No: rigidity, rebound, guarding Extremities: edema Skin: warm, dry, intact - Problem List Review Problem List Initiated/Reviewed/Updated: Yes - My Orders Last 24 Hours: My Active Orders 12/08/16 Lunch Soft Diet [DIET] 12/09/16 11:51 Chest 2V [CR] Urgent UA W/MICROSCOPIC [URIN] Stat 12/10/16 05:00 BASIC METABOLIC PANEL,BMP [CHEM] Timed CBC WITH AUTO DIFF [HEME] Timed LIPASE [CHEM] Timed 12/10/16 08:00 Furosemide [Lasix] 20 mg IVPUSH NOW ONE - Plan Plan:: Assessment and plan - Acute pancreatitis - pain continues to improve and lipase level has normalized. CT scan showed no ongoing evidence of inflammation in the pancreas or evidence of pseudocyst formation or necrosis. -Pain control with oral medications -Anti-nausea medications -Saline lock IV -Soft diet -Repeat CBC, lipase, and BMP in the morning Recent acute bronchitis with COPD - no evidence of infection, she does have ongoing leukocytosis but denies significant shortness of breath or cough. There is some element of fluid overload and will continue to treat with Lasix daily. Overall she is had a very good diuresis thus far. -Furosemide again in a.m. -Supplement oxygen as needed -Continue nebulizers -Closely monitor respiratory status Hypokalemia - potassium level normal today -Repeat potassium level in a.m. Leukocytosis-no specific etiology identified, she has had slight temperature elevation. No evidence of ongoing medication effect. -Chest x-ray and urinalysis now Tobacco dependence - tobacco cessation information will be provided and nicotine supplementation will be provided as requested. Maintenance issues - - DVT prophylaxis - mechanical - GI prophylaxis - PPI - Nutrition - clear liquids Disposition - anticipate discharge to home after the hospital stay
--- NOTE | 2016-12-09 14:05 | CR ---
Chest 2V INDICATION: Hypoxia and leukocytosis FINDINGS: Comparison 11/29/2016. Stable emphysematous changes. Interval development of a small/moderat e left and small right pleural effusion. Two stable nodules right lower lobe. Exam otherwise negativ e.
[2016-12-10] MEDS: Acetaminophen 325 MG Tab PO PRN (01:04)
[2016-12-10] MEDS: oxyCODONE 5 MG Tab PO PRN ×2 (06:06→10:40)
[2016-12-10] MEDS: Albuterol 0.083% 2.5 MG/3 ML Neb Soln INH SCH ×2 (07:08→10:51)
[2016-12-10] MEDS ORDERED: Furosemide 40 MG/4 ML VIAL IVPUSH ONE (08:00)
[2016-12-10] MEDS ORDERED: Furosemide 20 MG/2 ML VIAL IV ONE (08:00)
[2016-12-10] MEDS: Nicotine 21 MG/24 Hr Patch TRDERM SCH (08:02)
[2016-12-10 11:17] VITALS: BP 91/67
--- NOTE | 2016-12-10 11:17 | PCM.DCSUM1 ---
Discharge Summary - Hospital Course Brief History: This patient is a 51-year-old woman who was admitted through the emergency department with nausea vomiting and abdominal pain secondary to pancreatitis. - Discharge Data Discharge Date: 12/10/16 Discharge Disposition: Home, Self-Care 01 Condition: Fair - Discharge Diagnosis/Problem(s) (1) Acute pancreatitis SNOMED Code(s): 638894843 ICD Code: K85.90 - ACUTE PANCREATITIS WITHOUT NECROSIS OR INFECTION, UNSP Status: Acute Current Visit: Yes Qualifiers: Pancreatitis type: unspecified pancreatitis type Acute pancreatitis complication: no infection or necrosis Qualified Code(s): K85.90 - Acute pancreatitis without necrosis or infection, unspecified (2) Acute exacerbation of chronic obstructive pulmonary disease (COPD) SNOMED Code(s): 600833223 ICD Code: J44.1 - CHRONIC OBSTRUCTIVE PULMONARY DISEASE W (ACUTE) EXACERBATION Status: Acute Current Visit: No (3) Tobacco dependence syndrome SNOMED Code(s): 03914635 ICD Code: F17.200 - NICOTINE DEPENDENCE, UNSPECIFIED, UNCOMPLICATED Status : Chronic Current Visit: No (4) Hypoxia SNOMED Code(s): 483608295, 730081505 ICD Code: R09.02 - HYPOXEMIA Status: Acute Priority: High Current Visit : No - Patient Summary/Data Hospital Course: This patient is a 51-year-old woman who had been recently admitted to this facility for COPD exacerbation with bronchitis and hypoxia. She had been discharged home on oral antibiotic therapy with Omnicef and prednisone. Shortly after arriving home developed nausea vomiting abdominal pain and return to the emergency department for further evaluation. On assessment was found to have marked elevation in lipase level as well as elevation in amylase. CT scan of the abdomen and pelvis documented significant inflammation within the pancreas. She was admitted to the hospital and given IV fluids for hydration as well as pain medication and antiemetic therapy. Was felt most likely that the pancreatitis was precipitated by medications from previous discharge either the Omnicef or prednisone. These medications were held at the time of admission and her respiratory status remained stable throughout her hospitalization. Although at the time of discharge continued to require supplemental oxygen at 2 L/m via nasal cannula. She was kept nothing by mouth until her pain resolved and then was started on a clear liquid diet which was advanced to a soft diet. She was tolerating this diet well at the time of discharge without significant recurrence of abdominal pain or nausea vomiting. By the time of discharge her lipase level had normalized. White blood cell count was elevated on admission and although improved was still moderately elevated by the time of discharge. All up CT scan was obtained because of the persistent elevation in white count and showed no evidence of pancreatic necrosis or pseudocyst formation. Prior to discharge chest x-ray was obtained showing no evidence of infiltrate and urinalysis was found to be clear. She will be discharged home on supplemental oxygen, and a soft diet. She will be able to return to work on December 13 with no restrictions. Follow-up appointment will be scheduled with primary care provider within one week, CBC should be obtained at the time of follow-up appointment. - Patient Instructions Diet: Usual Diet as Tolerated Activity: As Tolerated Activity, Other: May return to work on December 13, 2016 without restrictions Other/Special Instructions: Please schedule follow-up appointment with primary care within 1 week, concerning recent pancreatitis and COPD exacerbation. Discharge to home with oxygen 2 L/m via nasal cannula. - Discharge Plan Prescriptions/Med Rec: oxyCODONE 5 mg PO Q4H PRN #20 tablet PRN Reason: Pain Home Medications: Home Meds Albuterol [Ventolin HFA] 1 puff INH ASDIRECTED PRN 11/28/16 [History] Albuterol [Proventil Neb Soln] 2.5 mg INH QID PRN #120 neb 12/01/16 [Rx] oxyCODONE 5 mg PO Q4H PRN #20 tablet 12/10/16 [Rx] - Patient Data Vitals - Most Recent: Last Vital Signs Temp 97.7 F 12/10/16 07:13 Pulse 78 12/10/16 10:52 Resp 16 12/10/16 07:13 BP 92/62 12/10/16 07:13 Pulse Ox 100 12/10/16 07:13 Weight - Most Recent: 111 lb I&O - Last 24 hours: Intake & Output 12/09/16 12/10/16 12/10/16 22:59 06:59 14:59 Intake Total 1400 360 Output Total 600 1750 Balance 800 -1390 Lab Results - Last 24 hrs: Laboratory Results - last 24 hr 12/09/16 12/10/16 12/10/16 Range/Units 13:12 06:00 06:00 WBC 17.1 H (4.5-11.0) K/uL RBC 3.54 (3.30-5.50) M/uL Hgb 11.5 L (12.0-15.0) g/dL Hct 33.6 L (36.0-48.0) % MCV 95 (80-98) fL MCH 33 H (27-31) pg MCHC 34 (32-36) % Plt Count 329 (150-400) K/uL Add Manual Diff Yes Neutrophils % (Manual) 69 H (36-66) % Lymphocytes % (Manual) 16 L (24-44) % Monocytes % (Manual) 12 H (2-6) % Eosinophils % (Manual) 3 (2-4) % Sodium 139 L (140-148) mmol/L Potassium 4.0 (3.6-5.2) mmol/L Chloride 103 (100-108) mmol/L Carbon Dioxide 32 (21-32) mmol/L Anion Gap 8.0 (5.0-14.0) mmol/L BUN 5 L (7-18) mg/dL Creatinine 0.6 (0.6-1.0) mg/dL Est Cr Clr Drug Dosing 90.15 mL/min Estimated GFR (MDRD) > 60 (>60) Glucose 94 (74-106) mg/dL Calcium 8.3 L (8.5-10.1) mg/dL Lipase 379 (73-393) U/L Urine Color Yellow Urine Appearance Clear Urine pH 9.0 H (4.5-8.0) Ur Specific [place] 1.020 (1.008-1.030) Urine Protein Negative (NEGATIVE) mg/dL Urine Glucose (UA) Normal (NEGATIVE) mg/dL Urine Ketones Negative (NEGATIVE) mg/dL Urine Occult Blood Negative (NEGATIVE) Urine Nitrite Negative (NEGATIVE) Urine Bilirubin Negative (NEGATIVE) Urine Urobilinogen Normal (NORMAL) mg/dL Ur Leukocyte Esterase Negative (NEGATIVE) Urine RBC 0-5 (0-5) Urine WBC 0-5 (0-5) Ur Epithelial Cells Rare Amorphous Sediment Not seen Urine Bacteria Not seen Urine Mucus Not seen Med Orders - Current: Current Medications Acetaminophen (Tylenol) 650 mg PO Q4H PRN PRN Reason: Pain (Mild 1-3)/fever Last Admin: 12/10/16 01:04 Dose: 650 mg Albuterol (Proventil Neb Soln) 2.5 mg INH QIDRT MILLER Last Admin: 12/10/16 10:51 Dose: 2.5 mg Albuterol (Proventil Neb Soln) 2.5 mg NEB Q4H PRN PRN Reason: Shortness Of Breath/wheezing Bisacodyl (Dulcolax) 10 mg PO DAILY PRN PRN Reason: Constipation Lorazepam (Ativan) 0.5 - 1 mg IVPUSH Q4H PRN PRN Reason: Nausea/Vomiting Nicotine (Habitrol) 21 mg TRDERM DAILY [facility] Last Admin: 12/10/16 08:02 Dose: 21 mg Ondansetron HCl (Zofran Odt) 4 mg PO Q6H PRN PRN Reason: Nausea able to take PO Ondansetron HCl (Zofran) 4 mg IV Q6H PRN PRN Reason: Nausea/Vomiting Last Admin: 12/05/16 10:37 Dose: 4 mg Oxycodone HCl (Oxycodone) 5 - 10 mg PO Q4H PRN PRN Reason: Pain Last Admin: 12/10/16 10:40 Dose: 10 mg Polyethylene Glycol (Miralax) 17 gm PO DAILY PRN PRN Reason: Constipation Last Admin: 12/03/16 10:27 Dose: 17 gm Senna/Docusate Sodium (Senna Plus) 1 tab PO BID PRN PRN Reason: Constipation Last Admin: 12/03/16 10:27 Dose: 1 tab Sodium Chloride (Saline Flush) 10 ml FLUSH ONETIME PRN PRN Reason: PER RADIOLOGY PROTOCOL Last Admin: 12/08/16 10:17 Dose: 10 ml Discontinued Medications Bisacodyl (Dulcolax) 5 mg PO DAILY PRN PRN Reason: Constipation Last Admin: 12/05/16 07:40 Dose: 5 mg Furosemide (Lasix) 20 mg IVPUSH ONETIME ONE Stop: 12/07/16 12:01 Last Admin: 12/07/16 14:21 Dose: 20 mg Furosemide (Lasix) 20 mg IVPUSH ONETIME ONE Stop: 12/07/16 14:16 Last Admin: 12/07/16 14:42 Dose: Not Given Furosemide (Lasix) 20 mg IVPUSH NOW ONE Stop: 12/08/16 11:46 Last Admin: 12/08/16 12:29 Dose: 20 mg Furosemide (Lasix) 20 mg IVPUSH ONETIME ONE Stop: 12/09/16 08:01 Last Admin: 12/09/16 07:59 Dose: 20 mg Furosemide (Lasix) 20 mg IV ONETIME ONE Stop: 12/10/16 08:01 Last Admin: 12/10/16 08:05 Dose: 20 mg Hydromorphone HCl (Dilaudid) 0.5 mg IVPUSH ONETIME ONE Stop: 12/03/16 03:04 Last Admin: 12/03/16 03:12 Dose: 0.5 mg Hydromorphone HCl (Dilaudid) 0.5 mg IVPUSH ONETIME ONE Stop: 12/03/16 03:33 Last Admin: 12/03/16 03:36 Dose: 0.5 mg Hydromorphone HCl (Dilaudid) 0.5 mg IVPUSH ONETIME ONE Stop: 12/03/16 06:01 Last Admin: 12/03/16 06:03 Dose: 0.5 mg Hydromorphone HCl (Dilaudid) Confirm Administered Dose 0.5 mg .ROUTE .STK-MED ONE Stop: 12/03/16 05:58 Last Admin: 12/03/16 06:03 Dose: Not Given Hydromorphone HCl (Dilaudid Fraud Analyst 15 Mg In Ns 30 Ml) 0 mg IV ASDIRECTED PRN; Protocol PRN Reason: Pain Last Admin: 12/06/16 18:36 Dose: 15 mg Sodium Chloride (Normal Saline) 1,000 mls @ 500 mls/hr IV ASDIRECTED MILLER Last Admin: 12/03/16 03:11 Dose: 500 mls/hr Sodium Chloride (Normal Saline) 70 mls @ 3 mls/sec IV ASDIRECTED STA Stop: 12/03/16 03:48 Last Admin: 12/03/16 04:00 Dose: 3 mls/sec Sodium Chloride (Normal Saline) 1,000 mls @ 150 mls/hr IV ASDIRECTED MILLER Last Admin: 12/05/16 10:49 Dose: 150 mls/hr Sodium Chloride (Normal Saline) 1,000 mls @ 75 mls/hr IV ASDIRECTED MILLER Last Admin: 12/06/16 05:45 Dose: 75 mls/hr Potassium Chloride 20 meq/Lidocaine HCl 2 ml/ Sodium Chloride 112 mls @ 50 mls/ hr IV Q2H MILLER Stop: 12/06/16 14:59 Last Admin: 12/06/16 13:19 Dose: 50 mls/hr Potassium Chloride/Dextrose/Sod Cl (D5 1/2 Ns W/ 20 Meq/L Kcl) 1,000 mls @ 75 mls/hr IV ASDIRECTED [facility] Last Admin: 12/07/16 01:49 Dose: 75 mls/hr Potassium Chloride 20 meq/Lidocaine HCl 2 ml/ Sodium Chloride 112 mls @ 56 mls/ hr IV Q2H [facility] Stop: 12/07/16 15:59 Last Admin: 12/07/16 19:42 Dose: 56 mls/hr Potassium Chloride/Dextrose/Sod Cl (D5 1/2 Ns W/ 20 Meq/L Kcl) 1,000 mls @ 25 mls/hr IV ASDIRECTED [facility] Last Admin: 12/07/16 16:51 Dose: 25 mls/hr Sodium Chloride (Normal Saline) 70 mls @ 3 mls/sec IV ONETIME ONE Stop: 12/08/16 09:43 Last Admin: 12/08/16 10:17 Dose: 3 mls/sec Iopamidol (Isovue-300 (61%)) 68 ml IV . DIRECTED STA Stop: 12/03/16 03:48 Last Admin: 12/03/16 03:59 Dose: 100 ml Iopamidol (Isovue-300 (61%)) 75 ml IV . DIRECTED PRN PRN Reason: RADIOLOGY EXAM Stop: 12/08/16 09:43 Last Admin: 12/08/16 10:18 Dose: 100 ml Magnesium Citrate (Citrate Of Magnesia) 296 ml PO ONETIME ONE Stop: 12/06/16 12:50 Last Admin: 12/06/16 13:23 Dose: 296 ml Magnesium Hydroxide (Milk Of Magnesia) 30 ml PO ONETIME ONE Stop: 12/05/16 12:52 Last Admin: 12/05/16 14:14 Dose: 30 ml Naloxone HCl (Narcan) 0.1 mg IVPUSH Q2M PRN PRN Reason: Respiratory Distress Ondansetron HCl (Zofran) 4 mg IVPUSH ONETIME ONE Stop: 12/03/16 05:52 Last Admin: 12/03/16 05:59 Dose: 4 mg Ondansetron HCl (Zofran) Confirm Administered Dose 4 mg .ROUTE .STK-MED ONE Stop: 12/03/16 05:58 Last Admin: 12/03/16 06:03 Dose: Not Given Pantoprazole Sodium (Protonix Iv) 40 mg IV Q12H MILLER Last Admin: 12/07/16 08:59 Dose: 40 mg Potassium Chloride (Klor-Con M20) 40 meq PO ONETIME ONE Stop: 12/09/16 10:01 Last Admin: 12/09/16 10:19 Dose: 40 meq Sodium Biphosphate/Sodium Phosphate (Fleet Enema) 133 ml RECTAL ONETIME ONE Stop: 12/06/16 20:05 Last Admin: 12/06/16 20:19 Dose: 133 ml *Q Meaningful Use (DIS) - VTE *Q VTE Criteria *Q: - Stroke *Q Stroke Criteria *Q: - AMI *Q AMI Criteria *Q:
== END 2016-12-10 12:08 | disposition home or self-care (01) | DRG 439 ==
LOC: JP.ED 02:27 → JP.2SS 05:52
PROVIDERS: ADMIT Internal Medicine; ATTEND Hospitalist
DX: K85.30 Drug induced acute pancreatitis without necrosis or infection (principal); J44.1 Chronic obstructive pulmonary disease with (acute) exacerbation; F17.210 Nicotine dependence, cigarettes, uncomplicated; R09.02 Hypoxemia; K59.00 Constipation, unspecified; H54.7 Unspecified visual loss; Z79.52 Long term (current) use of systemic steroids; Z99.81 Dependence on supplemental oxygen; T36.1X5A Adverse effect of cephalosporins and other beta-lactam antibiotics, initial encounter; Y92.009 Unspecified place in unspecified non-institutional (private) residence as the place of occurrence of the external cause; T38.0X5A Adverse effect of glucocorticoids and synthetic analogues, initial encounter; D72.829 Elevated white blood cell count, unspecified; E87.6 Hypokalemia
CPT/HCPCS: 36415; 71020; 71020-26; 74177; 74177-26; 80048; 80053; 81001; 82150; 83605; 83690; 83735; 85025; 85027; 94640; 94640-76; 94762; 96361; 96374; 96375; 96376; 99222-AI; 99231; 99232; 99238; 99284; 99284-25; A9270-GY; C9113; J1170; J1940; J2405; J3480; J7030; J7040; J7050; Q9967

== ENCOUNTER 2020-12-18 17:07 | Emergency (ER) | payer SELFPAY ==
[2020-12-18 17:26] VITALS: BP 127/84; PULSE 103
[2020-12-18] MEDS ORDERED: Ketorolac 30 MG/ML SDV IM ONE (17:46)
--- NOTE | 2020-12-18 17:47 | EDM.PDOC ---
ED HPI GENERAL MEDICAL PROBLEM - General Chief Complaint: Burn Stated Complaint: BURNED RIGHT LEG/FOOT Time Seen by Provider: 12/18/20 17:40 Source of Information: Reports: Patient, Old Records, RN History Limitations: Reports: No Limitations - History of Present Illness INITIAL COMMENTS - FREE TEXT/NARRATIVE: 55 yo female here after she accidently spilled Holiday coffee onto her R distal leg and foot anteriorly. Injury about 4 pm. She put Aloe on it and took Tylenol. She is not sure about tetanus. 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: Reports: Acetaminophen - Related Data Allergies Allergy/AdvReac Type Severity Reaction Status Date / Time nickel Allergy Rash Verified 06/28/18 09:53 Home Meds: Home Meds Albuterol [Ventolin HFA] 1 puff INH ASDIRECTED PRN 11/28/16 [History] Albuterol/Ipratropium [DuoNeb 3.0-0.5 MG/3 ML] 3 ml INH QIDRT #120 neb 07/01/18 [Rx] Montelukast [Singulair] 10 mg PO DAILY 12/18/20 [History] Past Medical History HEENT History: Reports: Impaired Vision Respiratory History: Reports: Asthma, COPD Gastrointestinal History: Reports: Pancreatitis Genitourinary History: Reports: None CONCILIATION COURT JUDGE History: Reports: Other CONCILIATION COURT JUDGE History: x 3 Musculoskeletal History: Reports: Fracture Hematologic History: Reports: Anesthesia Reaction, Anemia, Anticoagulation Therapy, Autoimmune Thrombocytopenic Purpura, B12 Deficiency, Bleeding Disorder, Blood Transfusion(s), Folic Acid, Hemochromatosis, Heparin Induced Thrombocytopenia, Idiopathic Thrombocytopenia, Iron Deficiency, Polycythemia, Sickle Cell Anemia, Transfusion Reaction, Other (See Below) Other Hematologic History: hx of spleenectomy Immunologic History: Reports: Other (See Below) Other Immunologic History: hx of spleenectomy Oncologic (Cancer) History: Reports: Cervix - Infectious Disease History Infectious Disease History: Reports: Chicken Pox - Past Surgical History Head Surgeries/Procedures: Reports: None HEENT Surgical History: Reports: Tonsillectomy Respiratory Surgical History: Reports: None GI Surgical History: Reports: Other (See Below) Other GI Surgeries/Procedures: spleen removed Female Surgical History: Reports: Section, Tubal Ligation Musculoskeletal Surgical History: Reports: None Oncologic Surgical History: Reports: None Dermatological Surgical History: Reports: None Social & Family History - Family History Family Medical History: No Pertinent Family History - Caffeine Use Caffeine Use: Reports: Coffee, Soda, Tea Caffeine Use Comment: greater than 6 cups/day - Living Situation & Occupation Living situation: Reports: , with Family 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 has 7 children, 1 as infant due to liver defect) ED ROS GENERAL - Review of Systems Review Of Systems: See Below Constitutional: Reports: No Symptoms Skin: Reports: Erythema (dorsum of R foot and R wright areas) Neurological: Reports: No Symptoms ED EXAM, BURN/SMOKE INHALATION - Physical Exam Exam: See Below Exam Limited By: No Limitations General Appearance: Alert, WD/WN, No Apparent Distress Neurological: Alert, Oriented, CN II-XII Intact, Normal Cognition, No Motor/Sensory Deficits Psychiatric: Normal Affect, Normal Mood Skin Exam: Warm, Dry, Intact, No Rash, Erythema (to about 1/2 of the dorsum of his R foot and to a lesser area of the anterior R wright. There is an intact blister to the dorsum of the R foot about 2.5 x 1 cm in size. ) Course - Vital Signs Last Recorded V/S: Last Vital Signs Temp 37.1 C 12/18/20 17:24 Pulse 103 H 12/18/20 17:24 Resp 16 12/18/20 17:24 BP 127/84 12/18/20 17:24 Pulse Ox 94 L 12/18/20 17:24 - Orders/Labs/Meds Meds: Medications Discontinued Medications Generic Name Dose Route Start Last Admin Trade Name Freq PRN Reason Stop Dose Admin Ketorolac Tromethamine 30 mg 12/18/20 17:46 Ketorolac 30 Mg/Ml Sdv IM 12/18/20 17:47 ONETIME ONE Departure - Departure Time of Disposition: 18:00 Disposition: Home, Self-Care 01 Condition: Fair Clinical Impression: First degree burn of ankle Qualifiers: Encounter type: initial encounter Laterality: right Qualified Code(s): T25.111A - Burn of first degree of right ankle, initial encounter Second degree burn of right foot Qualifiers: Encounter type: initial encounter Qualified Code(s): T25.221A - Burn of second degree of right foot, initial encounter - Discharge Information *PRESCRIPTION DRUG MONITORING PROGRAM REVIEWED*: Not Applicable *COPY OF PRESCRIPTION DRUG MONITORING REPORT IN PATIENT ANGELA: Not Applicable Instructions: Burn Care, Adult, [id number] Referrals: Merced Davila MD [Primary Care Provider] - Forms: ED Department Discharge Additional Instructions: Keep area clean. Apply frozen corn or peas or other dry cold object to burn area for relief tonight. Once blisters pop, then apply Bacitracin and a new dressing to area twice daily. Take ibuprofen 600 mg every 6 hrs and acetaminophen 1000 mg every 6 hrs as needed for pain relief. Recheck for signs of infection. Sepsis Event Note (ED) - Focused Exam Vital Signs: Vital Signs Temp Pulse Resp BP Pulse Ox 12/18/20 17:24 37.1 C 103 H 16 127/84 94 L
[2020-12-18] MEDS ORDERED: Diphtheria,Pertussis(Acell),Tetanus Vaccine 0.5 ML Syringe IM ONE (17:49)
== END 2020-12-18 18:21 | disposition home or self-care (01) ==
LOC: JP.ED 17:07
DX: T25.221A Burn of second degree of right foot, initial encounter (principal); T25.111A Burn of first degree of right ankle, initial encounter; J44.9 Chronic obstructive pulmonary disease, unspecified; Z91.048 Other nonmedicinal substance allergy status; Z23 Encounter for immunization; X10.0XXA Contact with hot drinks, initial encounter
CPT/HCPCS: 90471; 90715; 96372; 99283; J1885

== ENCOUNTER 2022-03-06 12:45 | Emergency (ER) | payer BC ==
[2022-03-06] MEDS ORDERED: methylPREDNISolone Sodium Succinate 125 MG/2 ML SDV ONE (14:15)
== END 2022-03-06 15:00 | disposition home or self-care (01) ==
LOC: JP.ED 12:45
DX: J44.1 Chronic obstructive pulmonary disease with (acute) exacerbation (principal); J20.8 Acute bronchitis due to other specified organisms; B97.89 Other viral agents as the cause of diseases classified elsewhere; Z20.822 Contact with and (suspected) exposure to COVID-19
CPT/HCPCS: 71046; 87635; 96372; 99283; J2930; U0002

== ENCOUNTER 2023-01-03 20:31 | Emergency (ER) | payer OTHER ==
[2023-01-03 20:51] VITALS: BP 97/70; PULSE 87
== END 2023-01-03 21:35 | disposition home or self-care (01) ==
LOC: JP.ED 20:31
DX: S60.051A Contusion of right little finger without damage to nail, initial encounter (principal); J44.9 Chronic obstructive pulmonary disease, unspecified; F17.210 Nicotine dependence, cigarettes, uncomplicated; Z91.09 Other allergy status, other than to drugs and biological substances; Z79.51 Long term (current) use of inhaled steroids; W22.09XA Striking against other stationary object, initial encounter
CPT/HCPCS: 73130-RT; 99282; 99283

== ENCOUNTER 2025-02-14 01:59 | Emergency (ER) | payer OTHER ==
[2025-02-14 02:23] LABS: BASOPHILS ABSOLUTE AUTO 0.08 K/uL (0.00-0.10); BASOPHILS PERCENT AUTO 0.6 % (0.1-1.3); EOSINOPHILS ABSOLUTE AUTO 0.43 K/uL (0.00-0.40); EOSINOPHILS PERCENT AUTO 3.4 % (0.0-5.4); IMMATURE GRAN ABSOLUTE AUTO 0.04 K/uL (0.00-0.23); IMMATURE GRAN PERCENT AUTO 0.3 % (0.0-0.7); LYMPHOCYTES ABSOLUTE AUTO 3.10 K/uL (0.8-3.3); LYMPHOCYTES PERCENT AUTO 24.8 % (11.4-47.7); MONOCYTES ABSOLUTE AUTO 1.51 K/uL (0.20-0.90); MONOCYTES PERCENT AUTO 12.1 % (3.3-12.6); NEUTROPHILS ABSOLUTE AUTO 7.35 K/uL (1.0-7.6); NEUTROPHILS PERCENT AUTO 58.8 % (40.0-78.1); PLATELET COUNT,PLT 285 K/uL (130-375); RED BLOOD CELL COUNT 4.12 M/uL (3.77-5.24); WHITE BLOOD CELL COUNT,WBC 12.5 K/uL (3.2-11.0)
[2025-02-14 02:25] LABS: BASE EXCESS VENOUS 2.2 mm/L; BICARBONATE,VENOUS 30.2 mmol/L; LACTIC ACID 1.3 mmol/L (0.4-2.0); O2 SATURATION VENOUS 39.5; OXYHEMOGLOBIN 37.2 %; PCO2 VENOUS 64.8 mm/Hg; PH,VENOUS 7.290 (7.350-7.450); PO2 VENOUS 25.9 mm/Hg; TOTAL HEMOGLOBIN 14.1 g/dL (12.0-16.0)
[2025-02-14 02:45] LABS: A/G RATIO 1.8 (1.2-2.2); ALANINE AMINOTRANSFERASE,ALT 32 U/L (12-78); ASPARTATE AMNIOTRANSFERASE,AST 26 U/L (15-37); BILIRUBIN TOTAL 0.3 mg/dL (0.2-1.0); BLOOD UREA NITROGEN,BUN 11 mg/dL (7-18); CARBON DIOXIDE,CO2 32 mmol/L (21-32); CHLORIDE,CL 103 mmol/L (100-108); CREATININE 0.6 mg/dL (0.6-1.0); EST CRCL DRUG DOSING (CG) 81.48 mL/min; ESTIMATED GFR 105 mL/min (>60); GLUCOSE RANDOM 119 mg/dL (74-106); POTASSIUM,K 4.7 mmol/L (3.6-5.2); PROTEIN TOTAL,TP 7.0 g/dL (6.4-8.2); SODIUM,NA 141 mmol/L (140-148)
[2025-02-14] MEDS: methylPREDNISolone Sodium Succinate 125 MG/2 ML SDV IVPUSH ONE (02:59)
[2025-02-14 03:52] VITALS: BP 106/64; PULSE 89
== END 2025-02-14 08:18 | disposition home or self-care (01) ==
LOC: JP.ED 01:59
DX: J44.1 Chronic obstructive pulmonary disease with (acute) exacerbation (principal); J06.9 Acute upper respiratory infection, unspecified; J44.89 Other specified chronic obstructive pulmonary disease; Z90.81 Acquired absence of spleen; Z90.09 Acquired absence of other part of head and neck; F17.210 Nicotine dependence, cigarettes, uncomplicated; Z91.09 Other allergy status, other than to drugs and biological substances; Z79.899 Other long term (current) drug therapy
CPT/HCPCS: 36415; 71046; 80053; 82803; 83605; 85025; 86140; 96374; 99285; J2919